=== PATIENT | female | born 1985 | race Caucasian/White ===

== ENCOUNTER 2019-12-18 07:33 | Emergency (ER) | payer OTHER, MEDICAID, SELFPAY ==
[2019-12-18 07:45] VITALS: BP 124/55; PULSE 70; RESP 22; TEMP 37.2; O2SAT 98; BMI 35.1
--- NOTE | 2019-12-18 07:46 | ED.DENTAL ---
HPI - Dental/Oral General Chief complaint: Dental/Oral Stated complaint: dental pain Time Seen by Provider: 12/18/19 07:46 Source: patient Mode of arrival: ambulatory Limitations: no limitations History of Present Illness MD Complaint: tooth pain Location: Tooth # (16) Teeth map: 1. 2. Onset (ago): day(s) (yesterday) Duration: constant Severity: severe Relieving factors: nothing Exacerbating factors: cold Treatment prior to arrival: none Related Data Previous Rx's Medication Instructions Recorded amoxicillin 500 mg PO BID 7 Days #14 cap 12/18/19 ibuprofen 600 mg PO Q6H PRN #30 tab 12/18/19 tramadol 50 mg PO Q8H PRN #14 tab 12/18/19 Allergies Allergy/AdvReac Type Severity Reaction Status Date / Time morphine [MORPHINE] Allergy Unknown HEADACHE, Verified 12/18/19 07:44 Migraine mushroom [MUSHROOM] Allergy Unknown UNKNOWN Verified 12/18/19 07:44 shellfish derived Allergy Unknown UNKNOWN Verified 12/18/19 07:44 [SHELLFISH DERIVED] Review of Systems Review of Systems: Constitutional : No Fever, No Chills ENT/Mouth : No swallowing difficulty, no change in voice, positive dental pain, positive jaw pain, no facial swelling Eyes: No Eye Pain, No Swelling Cardiovascular : No Chest Pain, No SOB Respiratory : No Cough, No Sputum Gastrointestinal : No Nausea, No Vomiting, No Diarrhea Genitourinary : No Dysuria Musculoskeletal : No Myalgias Skin : No rash Neuro : No Weakness, No Numbness, No Headache PMFSH Past Medical History Attestation statement: The following information was validated with the patient. Medical History (Updated 12/18/19 @ 07:55 by Sylwia Hurtado DO) Asthma Kidney stones Surgical History (Updated 12/18/19 @ 07:54 by Sylwia Hurtado DO) Hx of tubal ligation Social History Social History Alcohol intake: current Alcohol intake frequency: a few times a month Smoking Status: Never smoker Smoked in Last 30 Days: No Use of substances other than those prescribed or required for medical reasons: No Advance Directives: No Advance Directives Information Provided: No Physical Exam Vital Signs: Vital Signs: Last Vital Signs Temp 99.0 F 12/18/19 07:45 Pulse 70 12/18/19 07:45 Resp 22 H 12/18/19 07:45 BP 124/55 L 12/18/19 07:45 Pulse Ox 98 12/18/19 07:45 Body Mass Index 35.1 Appearance: Alert. Oriented X3. No acute distress. Eyes: Pupils equal, round and reactive to light. ENT: Pharynx normal. L upper wisdom tooth is impacted and unable to fully push through, no abscess, no drainage, no fluctuance Neck: Normal inspection. Neck supple. CVS: Normal heart rate and rhythm. Pulses normal. Respiratory: No respiratory distress. Breath sounds normal. Abdomen: Soft and nontender. Skin: Skin warm and dry. Normal skin color. Normal skin turgor. Extremities: No lower extremity edema. No calf ttp Neuro: Oriented X 3. No motor deficit. No sensory deficit. MDM - Dental/Oral MDM Narrative Medical decision making narrative: 34 yo female with asthma here with impacted dental wisdom tooth - L upper no signs of abscess, will need pain control and antibiotics, her issue will need oral surgery to remove teeth - she is aware and will call the dentist this week, no concern for deeper space infection Discharge Plan Discharge Clinical Impression: Impacted molar Patient Disposition: Home, Self-Care Instructions: Toothache (ED) Additional Instructions: return to ED for any worsening symptoms or concerns after every meal / food rinse mouth you need to see a dentist as soon as possible Prescriptions: New ibuprofen 600 mg tablet 600 mg PO Q6H PRN (Reason: pain) Qty: 30 RF: 0 amoxicillin 500 mg capsule 500 mg PO BID 7 Days Qty: 14 RF: 0 tramadol 50 mg tablet 50 mg PO Q8H PRN (Reason: pain) Qty: 14 RF: 0
[2019-12-18] MEDS: Ketorolac Tromethamine 60 MG/2 ML VIAL IM (08:02)
[2019-12-18] MEDS: Amoxicillin 500 MG CAPSULE PO (08:02)
[2019-12-18] MEDS: traMADoL HCL 50 MG TABLET PO (08:02)
== END 2019-12-18 08:14 | disposition home or self-care (01) ==
LOC: HO.ED 07:56
PROVIDERS: Emergency Provider Emergency Medicine; PCP Internal Medicine
DX: K01.1 Impacted teeth (principal); K08.89 Other specified disorders of teeth and supporting structures
CPT/HCPCS: 96372; 99284; J1885

== ENCOUNTER 2020-01-07 07:17 | Emergency (ER) | payer OTHER, MEDICAID, SELFPAY ==
[2020-01-07 07:23] VITALS: BP 136/87; PULSE 112; RESP 16; TEMP 37.7; O2SAT 98; BMI 35.1
--- NOTE | 2020-01-07 07:40 | ED_ITS ---
HPI - Fever General Chief Complaint: Fever Stated Complaint: fever Time Seen by Provider: 01/07/20 07:32 Source: patient Mode of arrival: ambulatory Limitations: no limitations History of Present Illness HPI Narrative: patient with no significant past medical history other family members are sick with fever cough not sure about a COVID. Patient been sick for last 4 days nausea vomiting weakness with low-grade fever patient vomited about 5 to 6 times a day with diarrhea. No abdominal pain complaining of diffuse back pain denies any urinary symptoms no cough no shortness of breath not sure about the COVID exposure MD elicited complaint: fever, malaise and weakness Onset (ago): day(s) (4) Context: sick contacts Exacerbating factors: nothing Relieving factors: nothing Associated symptoms: myalgias, nasal congestion, nausea, vomiting and diarrhea Treatments prior to arrival fever: none Related Data Previous Rx's Medication Instructions Recorded amoxicillin 500 mg PO BID 7 Days #14 cap 12/18/19 ibuprofen 600 mg PO Q6H PRN #30 tab 12/18/19 tramadol 50 mg PO Q8H PRN #14 tab 12/18/19 levofloxacin 500 mg PO DAILY 7 Days #7 tab 01/07/20 ondansetron 4 mg PO Q6-8H PRN #14 tab 01/07/20 tramadol 50 mg PO Q6H PRN #20 tab 01/07/20 Allergies Allergy/AdvReac Type Severity Reaction Status Date / Time morphine [MORPHINE] Allergy Unknown HEADACHE, Verified 12/18/19 07:44 Migraine mushroom [MUSHROOM] Allergy Unknown UNKNOWN Verified 12/18/19 07:44 shellfish derived Allergy Unknown UNKNOWN Verified 12/18/19 07:44 [SHELLFISH DERIVED] Review of Systems Review of Systems: Yes all other systems are reviewed and are negative Constitutional: Constitutional: Reports body ache(s), Reports chills, Reports fatigue, Reports fever(s) and Reports weakness Cardiovascular: Cardiovascular: Reports no additional cardiovascular complaints Respiratory: Respiratory: Denies chest congestion and Denies cough Gastrointestinal: Gastrointestinal: Denies abdominal pain, Reports diarrhea, Reports nausea and Reports vomiting Genitourinary: Genitourinary: Denies abnormal vaginal bleeding, Denies hematuria, Denies dysuria, Denies flank pain, Denies urinary hesitancy, Denies urinary urgency and Denies vaginal discharge Musculoskeletal: Musculoskeletal: Reports no additional musculoskeletal complaints Neurologic: Reports weakness Endocrine: Endocrine: Reports fatigue [facility] Past Medical History Medical History Asthma Kidney stones Surgical History Hx of tubal ligation Social History Social History Alcohol intake: current Alcohol intake frequency: holidays/special occasions only Smoking Status: Never smoker Use of substances other than those prescribed or required for medical reasons: No Advance Directives: No Advance Directives Information Provided: No Physical Exam Vital Signs: Vital Signs: Last Vital Signs Temp 98.7 F 01/07/20 13:06 Pulse 68 01/07/20 13:06 Resp 16 01/07/20 13:06 BP 121/67 01/07/20 13:06 Pulse Ox 98 01/07/20 13:06 Body Mass Index 35.1 Appearance: Alert. Oriented X3. No acute distress febrile nausea. Eyes: Pupils equal, round and reactive to light. ENT: Pharynx normal. Neck: Normal inspection. Neck supple. CVS: Normal heart rate and rhythm. Pulses normal. Respiratory: No respiratory distress. Breath sounds normal. Abdomen: Soft and nontender. bowel sounds normal no hepatosplenomegaly bilateral CVA tenderness Skin: Skin warm and dry. Normal skin color. Normal skin turgor. Extremities: No lower extremity edema. Good range of movement Neuro: Oriented X 3. No motor deficit. No sensory deficit. Course Course Course Narrative: patient feeling much better now taking p.o. fluids CT scan without any fluid collection or obstructive uropathy. Patient already received IV fluids and Rocephin will discharge her home on Levaquin MDM - Fever MDM Narrative Medical decision making narrative: patient with fever and diffuse back pain with nausea vomiting and diarrhea COVID test came back negative. urine showed WBCs suggestive of UTI. Will give her IV fluids check the CBC give IV Rocephin Lab Data Result diagrams: 01/07/20 09:03 01/07/20 09:03 Labs: Lab Results 01/07/20 01/07/20 01/07/20 Range/Units 07:38 08:03 09:03 WBC 13.8 H (4.8-10.8) X10*3/uL RBC 4.36 (4.20-5.50) X10*6/uL Hgb 12.7 (12.0-16.0) g/dl Hct 39.2 (37-47) % MCV 89.9 (80-98) fL MCH 29.1 (27.0-33.0) pg MCHC 32.4 (31.0-35.0) g/dl RDW 13.6 (11.0-16.0) % Plt Count 267 (160-400) X10*3/uL MPV 11.2 (9.4-12.3) fL Immature Gran % (Auto) 0.3 (0.0-0.4) % Neut % (Auto) 75.8 H (45-73) % Lymph % (Auto) 13.8 L (20-40) % [place] % (Auto) 9.8 (2-11) % Eos % (Auto) 0.1 (0-4) % Baso % (Auto) 0.2 (0-2) % Lymph # (Auto) 1.9 (1.2-4.9) X10*3/uL [place] # (Auto) 1.4 H (0.1-1.2) X10*3/uL Eos # (Auto) 0.0 (0.0-0.4) X10*3/uL Baso # (Auto) 0.0 (0.0-0.2) X10*3/uL Abs Immat Gran (auto) 0.04 H (0.00-0.03) X10*3/uL Absolute Neuts (auto) 10.5 H (2.0-8.3) X10*3/uL Absolute Nucleated RBC 0.000 (0.0-0.012) X10*3/uL Nucleated RBC % (auto) 0.0 (0.0-0.2) /100WBC Sodium (135-145) mmol/L Potassium (3.3-5.1) mmol/l Chloride (96-108) mmol/L Carbon Dioxide (22-29) mmol/L Anion Gap (12-20) BUN (9-16) mg/dL Creatinine (0.5-1.4) mg/dL Estim Creat Clear Calc Estimated GFR Random Glucose (60-115) mg/dL Calcium (8.4-10.2) mg/dL Total Bilirubin (0.0-1.0) mg/dL Direct Bilirubin (0.0-0.5) mg/dL AST (5-31) U/L ALT (0-31) U/L Alkaline Phosphatase (39-117) U/L Total Protein (6.5-8.0) g/dL Albumin (3.5-5.0) g/dL Lipase (8-78) U/L Urine Color YELLOW Urine Appearance CLOUDY Urine pH 6.5 (5.0-8.0) Ur Specific [place] 1.015 (1.005-1.025) Urine Protein 1+ H (NEG-TRACE) MG/DL Urine Glucose (UA) NEG (NEG) MG/DL Urine Ketones NEG (NEG) MG/DL Urine Blood 2+ H (NEG) Urine Nitrite NEG (NEG) Ur Leukocyte Esterase 1+ H (NEG) Urine RBC 5-9 H (0) /HPF Urine WBC 30-49 H (0-4) /HPF Ur Squamous Epith Cells TRACE /LPF Urine Bacteria 1+ /LPF Urine Test NEGATIVE (NEGATIVE) Coronavirus (PCR) NEGATIVE (Negative) Influenza Type A (PCR) NEGATIVE (Negative) Influenza Type B (PCR) NEGATIVE (Negative) RSV RNA Qual (PCR) NEGATIVE (Negative) 01/07/20 Range/Units 09:03 WBC (4.8-10.8) X10*3/uL RBC (4.20-5.50) X10*6/uL Hgb (12.0-16.0) g/dl Hct (37-47) % MCV (80-98) fL MCH (27.0-33.0) pg MCHC (31.0-35.0) g/dl RDW (11.0-16.0) % Plt Count (160-400) X10*3/uL MPV (9.4-12.3) fL Immature Gran % (Auto) (0.0-0.4) % Neut % (Auto) (45-73) % Lymph % (Auto) (20-40) % [place] % (Auto) (2-11) % Eos % (Auto) (0-4) % Baso % (Auto) (0-2) % Lymph # (Auto) (1.2-4.9) X10*3/uL [place] # (Auto) (0.1-1.2) X10*3/uL Eos # (Auto) (0.0-0.4) X10*3/uL Baso # (Auto) (0.0-0.2) X10*3/uL Abs Immat Gran (auto) (0.00-0.03) X10*3/uL Absolute Neuts (auto) (2.0-8.3) X10*3/uL Absolute Nucleated RBC (0.0-0.012) X10*3/uL Nucleated RBC % (auto) (0.0-0.2) /100WBC Sodium 137 (135-145) mmol/L Potassium 3.9 (3.3-5.1) mmol/l Chloride 101 (96-108) mmol/L Carbon Dioxide 26 (22-29) mmol/L Anion Gap 14 (12-20) BUN 8 L (9-16) mg/dL Creatinine 0.77 (0.5-1.4) mg/dL Estim Creat Clear Calc 101.4 Estimated GFR > 60 Random Glucose 135 H (60-115) mg/dL Calcium 8.6 (8.4-10.2) mg/dL Total Bilirubin 0.5 (0.0-1.0) mg/dL Direct Bilirubin 0.2 (0.0-0.5) mg/dL AST 15 (5-31) U/L ALT 18 (0-31) U/L Alkaline Phosphatase 103 (39-117) U/L Total Protein 7.2 (6.5-8.0) g/dL Albumin 4.2 (3.5-5.0) g/dL Lipase 20 (8-78) U/L Urine Color Urine Appearance Urine pH (5.0-8.0) Ur Specific [place] (1.005-1.025) Urine Protein (NEG-TRACE) MG/DL Urine Glucose (UA) (NEG) MG/DL Urine Ketones (NEG) MG/DL Urine Blood (NEG) Urine Nitrite (NEG) Ur Leukocyte Esterase (NEG) Urine RBC (0) /HPF Urine WBC (0-4) /HPF Ur Squamous Epith Cells /LPF Urine Bacteria /LPF Urine Test (NEGATIVE) Coronavirus (PCR) (Negative) Influenza Type A (PCR) (Negative) Influenza Type B (PCR) (Negative) RSV RNA Qual (PCR) (Negative) Discharge Plan Discharge Clinical Impression: Pyelonephritis Patient Disposition: Home, Self-Care Instructions: Urinary Tract Infection in Women (ED) Additional Instructions: drink plenty of fluids. Take antibiotic as prescribed. Pain medication as advised. Report to the ER if increased vomiting/ fever not getting better Prescriptions: New levofloxacin 500 mg tablet 500 mg PO DAILY 7 Days Qty: 7 RF: 0 ondansetron 4 mg tablet,disintegrating 4 mg PO Q6-8H PRN (Reason: nausea and vomiting) Qty: 14 RF: 0 tramadol 50 mg tablet 50 mg PO Q6H PRN (Reason: pain) Qty: 20 RF: 0 No Action ibuprofen 600 mg tablet 600 mg PO Q6H PRN (Reason: pain) Qty: 30 RF: 0 amoxicillin 500 mg capsule 500 mg PO BID 7 Days Qty: 14 RF: 0 tramadol 50 mg tablet 50 mg PO Q8H PRN (Reason: pain) Qty: 14 RF: 0 Interventions: ED Discharge Assessment Last Done: 01/07/20 13:18 Discharge Date/Time: 01/07/20 13:18
[2020-01-07] MEDS: Acetaminophen 325 MG TABLET 650 MG PO (07:43)
[2020-01-07 08:10] LABS: Glucose Urine UA NEG (NEG); Leukocyte Esterase Urine 1+ (NEG); Nitrite Urine NEG (NEG); PH 6.5 (5.0-8.0); Specific Gravity - Urine 1.015 (1.005-1.025); Urine Blood 2+ (NEG); Urine Ketones NEG (NEG); Urine Protein 1+ MG/DL (NEG-TRACE)
[2020-01-07 08:20] LABS: Appearance Urine CLOUDY; Color Urine YELLOW
[2020-01-07 08:31] LABS: Bacteria Urine 1+ /LPF; Squamous Epithelial Cell Urine TRACE /LPF; WBC Urine 30-49 /HPF (0-4)
[2020-01-07 08:32] LABS: Influenza A PCR NEGATIVE (Negative); Influenza B PCR NEGATIVE (Negative); Resp Syncy Virus RNA Qual PCR NEGATIVE (Negative); SARS COV2 PCR INHOUSE NEGATIVE (Negative)
[2020-01-07 09:05] LABS: UPreg QC Valid YES
[2020-01-07 09:06] LABS: Urine Pregnancy NEGATIVE (NEGATIVE)
[2020-01-07 09:09] VITALS: BP 112/63; PULSE 70; RESP 16; TEMP 37.2; O2SAT 98
[2020-01-07 09:09] LABS: MANUAL DIFF FLAG NO
[2020-01-07 09:16] LABS: Basophils Percent Auto 0.2 % (0-2); Eosinophils Percent Auto 0.1 % (0-4); Hematocrit 39.2 % (37-47); Hemoglobin 12.7 g/dl (12.0-16.0); Imm Gran Abs Auto 0.04 X10*3/uL (0.00-0.03); Imm Gran Pct Auto 0.3 % (0.0-0.4); Lymphocytes Absolute Auto 1.9 X10*3/uL (1.2-4.9); Lymphocytes Percent Auto 13.8 % (20-40); Mean Corpuscular HGB Conc 32.4 g/dl (31.0-35.0); Mean Corpuscular Hemoglobin 29.1 pg (27.0-33.0); Mean Corpuscular Volume 89.9 fL (80-98); Mean Platelet Volume 11.2 fL (9.4-12.3); Monocytes Absolute Auto 1.4 X10*3/uL (0.1-1.2); Monocytes Percent Auto 9.8 % (2-11); Neutrophils Absolute Auto 10.5 X10*3/uL (2.0-8.3); Neutrophils Percent Auto 75.8 % (45-73); Platelet Count 267 X10*3/uL (160-400); Red Blood Count 4.36 X10*6/uL (4.20-5.50); Red Cell Distribution Width 13.6 % (11.0-16.0); White Blood Count 13.8 X10*3/uL (4.8-10.8)
[2020-01-07] MEDS: Ketorolac Tromethamine 30 MG/ML VIAL IVPUSH (09:16)
[2020-01-07] MEDS: 0.9 % Sodium Chloride 1,000 ML 999 ML IVCONT (09:16)
[2020-01-07] MEDS: cefTRIAXone sodium 1 GM in 0.9 % Sodium Chloride 50 ML IV (09:17)
[2020-01-07 09:31] LABS: Anion Gap 14 (12-20); Blood Urea Nitrogen 8 mg/dL (9-16); Calcium 8.6 mg/dL (8.4-10.2); Carbon Dioxide 26 mmol/L (22-29); Chloride 101 mmol/L (96-108); Creatinine Clr Calc Pharmacy 101.4; Estimated Glomerular Filt Rate > 60; Glucose Random 135 mg/dL (60-115); Potassium 3.9 mmol/l (3.3-5.1); Sodium 137 mmol/L (135-145)
[2020-01-07 09:36] VITALS: BP 100/42; PULSE 67; RESP 16; O2SAT 96
--- NOTE | 2020-01-07 09:38 | CT_ITS ---
EXAMINATION: CT ABDOMEN AND PELVIS WITHOUT CONTRAST CLINICAL INFORMATION: Severe flank pain with urinary tract infection. Stone? COMPARISON: CT abdomen and pelvis from 07/29/2018. TECHNIQUE: Multidetector volumetric imaging was performed from the superior aspect of the liver through the pubic symphysis. Sagittal and coronal reformatted images were obtained on the technologist's workstation. This CT examination was performed using dose optimization techniques as appropriate, variously including the following: *Automated exposure control *Adjustment of mA and/or kV according to patient size (this includes techniques or standardized protocols for targeted exams where dose is matched to indication/reason for exam; i.e. extremities or head) *Use of iterative reconstruction technique DLP: 650 mGy-cm FINDINGS: LUNG BASES: Normal. No pulmonary consolidation or pleural effusion at either lung base. LIVER: The liver has normal size, shape, and attenuation. No focal liver lesion. GALLBLADDER AND BILIARY TREE: No radiopaque gallstones, wall thickening or pericholecystic fluid. No intrahepatic or extrahepatic bile duct dilatation. PANCREAS: Normal. No evidence of pancreatic ductal dilatation or mass. SPLEEN: Normal. ADRENAL GLANDS: Normal. KIDNEYS AND URETERS: Kidneys are normal in size. There are a few small calculi of less than 0.3 cm size involving lower pole of each kidney. Small bilateral renal stones were also observed on 07/29/2018. No large calculi. No evidence of ureterolithiasis or hydroureteronephrosis. Minimal left perinephric edema is noted. No focal perinephric fluid collection. Query whether patient has predominantly left-sided flank pain. BOWEL AND PERITONEUM: Stomach is unremarkable. No dilated loops of bowel. The appendix is normal. No overt bowel wall thickening or mesenteric fat stranding. No ascites or pneumoperitoneum. ABDOMINAL WALL: There appears to be chronic mild postoperative scarring, along with mild postoperative widening of rectus abdominis muscles, of the lower abdominal wall. VASCULATURE: Unremarkable. LYMPH NODES: No pathologic sized lymph nodes in the abdomen or pelvis. No inguinal lymphadenopathy. BLADDER AND PELVIC VISCERA: The urinary bladder has normal wall thickness. No bladder calculi. No perivesical edema. A few phleboliths are seen in the left lower pelvis. SKELETAL: Unremarkable. CT/CT abdomen pelvis wo con IMPRESSION: * Small bilateral renal calculi without hydroureteronephrosis. * Minimal left-sided perinephric edema is a finding that requires clinical correlation. Query whether there is predominantly left-sided flank pain. Although nonspecific, the edema could be a manifestation of a urinary tract infection (potential pyelonephritis, if in the correct clinical context). There is no focal perinephric collection/abscess identified on this noncontrast examination.
[2020-01-07 10:00] VITALS: RESP 16
[2020-01-07] MEDS: Morphine Sulfate 4 MG/ML CARTRIDGE IVPUSH (10:00)
[2020-01-07] MEDS: ondansetron HCL 4 MG/2 ML VIAL IVPUSH (10:00)
[2020-01-07 10:01] LABS: Alanine Aminotransferase 18 U/L (0-31); Albumin Level 4.2 g/dL (3.5-5.0); Alkaline Phosphatase 103 U/L (39-117); Aspartate Amino Transferase 15 U/L (5-31); Bilirubin Direct 0.2 mg/dL (0.0-0.5); Bilirubin Total 0.5 mg/dL (0.0-1.0); Lipase 20 U/L (8-78); Total Protein 7.2 g/dL (6.5-8.0)
[2020-01-07 10:08] VITALS: BP 104/42; PULSE 57; RESP 15; TEMP 37.1; O2SAT 97
[2020-01-07 13:06] VITALS: BP 121/67; PULSE 68; RESP 16; TEMP 37.1; O2SAT 98
== END 2020-01-07 13:18 | disposition home or self-care (01) ==
PROVIDERS: Emergency Provider Internal Medicine; PCP Internal Medicine
DX: N10 Acute pyelonephritis (principal); R50.9 Fever, unspecified; Z20.828 Contact with and (suspected) exposure to other viral communicable diseases; Z79.899 Other long term (current) drug therapy
CPT/HCPCS: 0241U; 36415; 74176; 80048; 80076; 81001; 81025; 83690; 85025; 87086; 87088; 87186; 96361; 96365; 96375; 96376; 99284; J0696; J1885; J2270; J2405

== ENCOUNTER → 2020-02-14 08:48 | Outpatient (BNVA) | payer OTHER, MEDICAID, SELFPAY | PROVIDERS: PCP Internal Medicine; Visit Provider Orthopaedic Surgery | DX: Z76.89 Persons encountering health services in other specified circumstances (principal) ==

== ENCOUNTER 2020-03-08 08:09 | Outpatient (REF) | payer OTHER, SELFPAY ==
--- NOTE | 2020-03-08 08:11 | EMG_ITS ---
Right median and ulnar motor and sensory studies were performed. Right radial sensory study was performed and paraspinal muscles were tested. IMPRESSION: [id number] right median neuropathy across carpal tunnel. MD BRISA Stanton/RUPINDER / [id number]
== END 2020-03-08 08:10 | disposition home or self-care (01) ==
LOC: HO.NEURO 08:09
PROVIDERS: PCP Internal Medicine; Visit Provider Orthopaedic Surgery
DX: R20.0 Anesthesia of skin (principal); R20.2 Paresthesia of skin
CPT/HCPCS: 95886; 95909

== ENCOUNTER → 2020-03-28 09:33 | Outpatient (BNVA) | payer OTHER, SELFPAY | PROVIDERS: PCP Internal Medicine; Visit Provider Orthopaedic Surgery ==

== ENCOUNTER 2020-04-19 11:55 | Day surgery (SDC) | payer OTHER, SELFPAY ==
--- NOTE | 2020-04-19 11:47 | W.PM.OPN ---
Operative Note Operative Note Date of Service: 04/19/20 Narrative: Preop diagnosis: 1. Right Carpal tunnel syndrome Postop diagnosis: 1. Right Carpal tunnel syndrome Procedure: 1. Right Carpal tunnel release Surgeon: Constance Palma MD Anesthesia: local block using 1% lidocaine with epinephrine Findings: Thickened transverse carpal ligament. EBL: Less than 5 mL Specimens: None Complications: None Disposition: Brought to recovery room in stable condition Plan: Follow-up for 7-10 days for wound check and suture removal Indications: The patient is 34 years old, with right carpal tunnel syndrome that has been unresponsive to nonoperative management. The risks and benefits of operative treatment including but not limited to risk of damage to blood vessels, nerves, tendons, infection, persistent pain, persistent symptoms, or possible need for additional surgery were discussed with the patient and the patient wishes to proceed with surgery. Procedure: Once consent was obtained a local block was performed using a combination of 1% lidocaine with epinephrine. The patient was then brought back to the operating suite and placed on the operative table in supine position. A tourniquet was applied to the proximal aspect of the right upper extremity and the limb was prepped and draped in a standard surgical fashion. Once assured that we had a good block, a 1.5 cm longitudinal incision was made centered over the right carpal tunnel. The incision was made through the skin to the subcutaneous tissues using a #15 blade. Dissection was made down to the level of the transverse carpal ligament with care being taken to protect the palmar cutaneous nerve. Once the transverse carpal ligament was clearly visualized, a longitudinal incision was made in the transverse carpal ligament 1st using a #15 blade, then using tenotomy scissors under direct visualization. Care was taken to look for and protect the motor branch of the median nerve when seen in this area. Once satisfied with our carpal tunnel release the wound was copiously irrigated with normal saline and hemostasis was obtained with a brief period of local pressure. The skin edges were reapproximated with some 5.0 nylon suture material and a sterile dressing was applied. The patient appears to have tolerated the procedure well and with no complications. All digits were well vascularized at the conclusion of the case.
[2020-04-19 11:50] VITALS: BP 148/78; PULSE 57; RESP 16; TEMP 36.6; O2SAT 98; BMI 34.0
[2020-04-19 13:36] VITALS: BP 134/91; PULSE 59; RESP 18; TEMP 37.6; O2SAT 100
--- NOTE | 2020-04-19 14:21 | MHC.SHP ---
Pre-Procedural Eval Section B Chief Complaint: carpal tunnel Allergies: Allergies Allergy/AdvReac Type Severity Reaction Status Date / Time mushroom [MUSHROOM] Allergy Unknown UNKNOWN Verified 04/19/20 11:58 shellfish derived Allergy Unknown UNKNOWN Verified 04/19/20 11:58 [SHELLFISH DERIVED] Plan I have reviewed the history and physical and performed a pertinent physical examination on my patient. No changes have occurred unless specified.
== END 2020-04-19 13:52 | disposition home or self-care (01) ==
PROVIDERS: PCP Internal Medicine; Visit Provider Orthopaedic Surgery
PROC: (CPT 64721; principal; 2020-04-19 12:30)
DX: G56.01 Carpal tunnel syndrome, right upper limb (principal); J45.909 Unspecified asthma, uncomplicated; Z79.51 Long term (current) use of inhaled steroids; Z79.899 Other long term (current) drug therapy; Z88.8 Allergy status to other drugs, medicaments and biological substances
CPT/HCPCS: 64721

== ENCOUNTER → 2020-04-30 10:02 | Outpatient (BNVA) | payer OTHER, SELFPAY | PROVIDERS: PCP Internal Medicine; Visit Provider Physician Assistant ==

== ENCOUNTER 2020-05-13 15:40 | Emergency (ER) | payer OTHER, SELFPAY ==
[2020-05-13 15:50] VITALS: BP 163/79; PULSE 61; RESP 16; TEMP 37.1; O2SAT 100; BMI 35.8
--- NOTE | 2020-05-13 17:07 | ED.DENTAL ---
HPI - Dental/Oral General Chief complaint: Dental/Oral Stated complaint: Dental Pain Time Seen by Provider: 05/13/20 17:06 History of Present Illness HPI Narrative: Patient complains of left-sided dental pain after wisdom tooth removal 3 days ago, pain is not controlled with Motrin and Tylenol and it has been hurting for 3 days, no fever chills Related Data Home Medications Medication Instructions Recorded Confirmed verapamil 120 mg tablet 120 mg PO DAILY 02/14/20 albuterol sulfate [ProAir HFA] 2 puff INHALATION QID PRN 04/19/20 04/19/20 cetirizine 1 tab PO DAILY PRN 04/19/20 04/19/20 fluticasone propionate [Flovent 2 puff PO BID 04/19/20 04/19/20 HFA] montelukast 1 tab PO BEDTIME 04/19/20 04/19/20 Previous Rx's Medication Instructions Recorded ibuprofen 600 mg PO Q6H PRN #30 tab 12/18/19 hydrocodone-acetaminophen 1 tab PO Q4-6H PRN #5 tab 04/19/20 ibuprofen 600 mg PO Q6H PRN #20 tab 05/13/20 oxycodone 5 mg PO Q6H PRN #14 tab 05/13/20 penicillin V potassium 500 mg PO QID 7 Days #28 tab 05/13/20 Allergies Allergy/AdvReac Type Severity Reaction Status Date / Time mushroom [MUSHROOM] Allergy Unknown UNKNOWN Verified 04/19/20 11:58 shellfish derived Allergy Unknown UNKNOWN Verified 04/19/20 11:58 [SHELLFISH DERIVED] Review of Systems Review of Systems: Positive for left-sided dental pain negatives are no fever no chills no dizziness no weakness no difficulty breathing or swallowing no shortness of breath no chest pain no neck pain no skin rash Yes all other systems are reviewed and are negative PMFSH Past Medical History Source: nursing notes reviewed Medical History (Updated 05/14/20 @ 00:00 by Elenita Lucio) Asthma Carpal tunnel syndrome of right wrist History of palpitations Kidney stones Surgical History (Updated 05/13/20 @ 15:52 by Nery Amado) History of lithotripsy Hx of tubal ligation [place] teeth extracted Family History Family History Mother No problems noted. Father No problems noted. 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 Physical Exam Vital Signs: Vital Signs: Last Vital Signs Temp 98.0 F 05/13/20 17:40 Pulse 63 05/13/20 17:40 Resp 16 05/13/20 17:40 BP 156/77 H 05/13/20 17:40 Pulse Ox 100 05/13/20 17:40 Body Mass Index 35.8 General appearance no acute distress A&O x3, and cooperative The facial exam the pharynx is normal and well hydrated The dental exam there is a site of tooth extraction which is not red or swollen, there is tenderness in the area, there is no facial swelling, the mandible has normal range of motion, no trismus, voice is normal The neck is supple The respiratory no acute distress Skin no rash Neuro no focal deficit Course Course Course Narrative: Patient is given pain medication and is already taking an antibiotic and is advised to follow with his dentist Discharge Plan Discharge Clinical Impression: Pain, dental Patient Disposition: Home, Self-Care Additional Instructions: Because pain is severe I added narcotic best plan is take extra-strength Tylenol available [id number] 2 tablets, a total of a 1000 mg 3 times a day Take the 600 mg ibuprofen up to 4 times a day If this is not helping then you can take the oxycodone 1 or 2 tablets every 4-6 hours As pain seems to be getting worse and there is some swelling I started an antibiotic in case of infection so take the penicillin Call your dentist Thursday so they can recheck and make sure this is normal healing Return to ER any time any worse condition or any concerns Prescriptions: New penicillin V potassium 500 mg tablet 500 mg PO QID 7 Days Qty: 28 RF: 0 oxycodone 5 mg tablet 5 mg PO Q6H PRN (Reason: pain) Qty: 14 RF: 0 ibuprofen 600 mg tablet 600 mg PO Q6H PRN (Reason: pain) Qty: 20 RF: 0 No Action cetirizine 10 mg tablet 1 tab PO DAILY PRN (Reason: allergies) RF: 0 Flovent HFA 44 mcg/actuation HFA aerosol inhaler 2 puff PO BID RF: 0 montelukast 10 mg tablet 1 tab PO BEDTIME RF: 0 albuterol sulfate [ProAir HFA] 90 mcg/actuation HFA aerosol inhaler 2 puff inhalation QID PRN (Reason: asthma) RF: 0 hydrocodone-acetaminophen 5-325 mg tablet 1 tab PO Q4-6H PRN (Reason: pain) Qty: 5 RF: 0 ibuprofen 600 mg tablet 600 mg PO Q6H PRN (Reason: pain) Qty: 30 RF: 0 Interventions: ED Discharge Assessment Last Done: 05/13/20 17:43 Discharge Date/Time: 05/13/20 17:46
[2020-05-13] MEDS: Acetaminophen 325 MG TABLET 975 MG PO (17:23)
[2020-05-13] MEDS: Ibuprofen 600 MG TABLET PO (17:24)
[2020-05-13] MEDS: Penicillin V Potassium 250 MG TABLET 500 MG PO (17:24)
[2020-05-13] MEDS: oxyCODONE HCl Immed Release 5 MG TABLET 10 MG PO (17:24)
[2020-05-13 17:40] VITALS: BP 156/77; PULSE 63; RESP 16; TEMP 36.7; O2SAT 100
== END 2020-05-13 17:46 | disposition home or self-care (01) ==
PROVIDERS: Emergency Provider Emergency Medicine; PCP Internal Medicine
DX: K08.89 Other specified disorders of teeth and supporting structures (principal); Z79.899 Other long term (current) drug therapy
CPT/HCPCS: 99283; 99284

== ENCOUNTER 2020-06-29 09:28 | Emergency (ER) | payer OTHER, MEDICAID, SELFPAY ==
--- NOTE | ~2020-06-29 | CT_ITS ---
EXAMINATION: CT ABDOMEN AND PELVIS WITHOUT CONTRAST CLINICAL INFORMATION: Bilateral flank and lower back pain. History of kidney stones. COMPARISON: CT abdomen and pelvis 12/30/2019 TECHNIQUE: Multidetector volumetric imaging was performed from the superior aspect of the liver through the pubic symphysis. Sagittal and coronal reformatted images were obtained on the technologist's workstation. This CT examination was performed using dose optimization techniques as appropriate, variously including the following: *Automated exposure control *Adjustment of mA and/or kV according to patient size (this includes techniques or standardized protocols for targeted exams where dose is matched to indication/reason for exam; i.e. extremities or head) *Use of iterative reconstruction technique DLP: 656 mGy-cm FINDINGS: LUNG BASES: There is right middle lobe platelike atelectasis. The lung bases are clear. The heart size is normal. LIVER, GALLBLADDER, AND BILIARY TREE: The liver is normal in size, shape, and attenuation. No focal hepatic lesion or biliary ductal dilatation is present. The gallbladder is unremarkable with no evidence of radiopaque gallstones, gallbladder wall thickening, or obvious pericholecystic inflammatory changes. PANCREAS: Unremarkable. SPLEEN: Unremarkable. ADRENAL GLANDS: Unremarkable. KIDNEYS AND URETERS: The kidneys are normal in size, lobulated shape, and normal attenuation. 2 mm radiopaque calculi in lower pole, 1 mm radiopaque calculi in midpole right kidney. There are punctate 1 mm radiopaque calculi in midpole left kidney. There is no caliectasis or hydronephrosis. BLADDER: Unremarkable. GASTROINTESTINAL TRACT: There is scattered stool and gas seen throughout the colon without any significant distention. The small bowel loops are normal caliber. Appendix is normal caliber. No signs of obstruction. The stomach is nondistended. ABDOMINAL WALL: There is a small umbilical hernia containing fat. LYMPH NODES: Normal. VASCULAR: Unremarkable. PELVIC VISCERA: The uterus is anteverted and appears unremarkable. Is no free air or free fluid. OSSEOUS STRUCTURES: No gross bony abnormality seen. There is a small umbilical hernia containing fat. CT/CT abdomen pelvis wo con IMPRESSION: Small bilateral nonobstructive renal calculi. No caliectasis or hydronephrosis seen. Mild constipation.
[2020-06-29 10:11] VITALS: BP 148/72; PULSE 67; RESP 16; TEMP 36.8; O2SAT 99; BMI 36.6
[2020-06-29 10:39] LABS: Glucose Urine UA NEG (NEG); Leukocyte Esterase Urine NEG (NEG); Nitrite Urine NEG (NEG); PH 7.5 (5.0-8.0); Specific Gravity - Urine 1.015 (1.005-1.025); Urine Blood NEG (NEG); Urine Ketones NEG (NEG); Urine Protein NEG (NEG-TRACE)
[2020-06-29 10:42] LABS: Appearance Urine CLEAR; Color Urine YELLOW; UPreg QC Valid YES; Urine Pregnancy NEGATIVE (NEGATIVE)
[2020-06-29 10:55] LABS: COVID-19 Test Negative (Negative)
[2020-06-29] MEDS: Cyclobenzaprine HCl 10 MG TABLET PO (12:06)
--- NOTE | 2020-06-29 12:35 | ED.GENADULT ---
HPI - General Adult General Chief complaint: General Medical Stated complaint: BODY ACHES Time Seen by Provider: 06/29/20 10:42 Source: patient Mode of arrival: ambulatory Limitations: no limitations History of Present Illness HPI narrative: 34-year-old female with a past medical history of kidney stones, palpitations, asthma and carpal tunnel syndrome presenting to the ED with complaints of 2 weeks of fatigue and body aches worsened the past few days. Reports associated nausea. Denies any fevers, dizziness, headaches, changes in vision, vomiting, sore throat, cough, ear pain, nasal congestion, chest pain, shortness of breath, dyspnea on exertion, orthopnea, palpitations, diarrhea constipation or any other symptoms complaints or concerns at this time. Denies recent travel or sick contacts. Related Data Home Medications Medication Instructions Recorded Confirmed verapamil 120 mg tablet 120 mg PO DAILY 02/14/20 albuterol sulfate [ProAir HFA] 2 puff INHALATION QID PRN 04/19/20 04/19/20 cetirizine 1 tab PO DAILY PRN 04/19/20 04/19/20 fluticasone propionate [Flovent 2 puff PO BID 04/19/20 04/19/20 HFA] montelukast 1 tab PO BEDTIME 04/19/20 04/19/20 Previous Rx's Medication Instructions Recorded ibuprofen 600 mg PO Q6H PRN #30 tab 12/18/19 hydrocodone-acetaminophen 1 tab PO Q4-6H PRN #5 tab 04/19/20 ibuprofen 600 mg PO Q6H PRN #20 tab 05/13/20 oxycodone 5 mg PO Q6H PRN #14 tab 05/13/20 penicillin V potassium 500 mg PO QID 7 Days #28 tab 05/13/20 acetaminophen [Tylenol Extra 1,000 mg PO QID PRN #14 tab 06/29/20 Strength] azithromycin See Rx Instructions .ROUTE 06/29/20 .COMPLEX #6 tab cyclobenzaprine 10 mg PO Q8H #10 tab 06/29/20 ibuprofen 800 mg PO Q8H PRN #14 tab 06/29/20 ondansetron HCl [Zofran] 4 mg PO Q8H PRN #14 tab 06/29/20 tramadol 50 mg PO BID PRN #14 tab 06/29/20 Allergies Allergy/AdvReac Type Severity Reaction Status Date / Time mushroom [MUSHROOM] Allergy Unknown UNKNOWN Verified 04/19/20 11:58 shellfish derived Allergy Unknown UNKNOWN Verified 04/19/20 11:58 [SHELLFISH DERIVED] Review of Systems Review of Systems: Constitutional : No Weight loss, No Fever, No Chills, No Night Sweats, positive Fatigue, positive Malaise ENT/Mouth : No Hearing loss, No Ear Pain, No Nasal Congestion, No Sinus Pain, No Hoarseness, No sore throat, No Rhinorrhea, No Swallowing Difficulty Eyes: No Eye Pain, No Swelling, No Redness, No Foreign Body, No Discharge, No Vision Changes Cardiovascular : No Chest Pain, No SOB, No Dyspnea on Exertion, No Orthopnea, No Edema, No Palpitations Respiratory : No Cough, No Sputum, No Wheezing, No Smoke Exposure, No Dyspnea Gastrointestinal : Positive Nausea, No Vomiting, No Diarrhea, No Constipation, positive abdominal Pain, No Hematochezia, No Melena Genitourinary : no irregular bleeding, No Dysuria, No Urinary Frequency, No Hematuria, No Urinary Incontinence, No Urgency, No Flank Pain, No Urinary Flow Changes, No Hesitancy Musculoskeletal : Positive back pain, positive joint pain, positive Myalgias, No Joint Swelling Skin : No Skin Lesions, No rash Neuro : No Weakness, No Numbness, No Paresthesias, No Loss of Consciousness, No Dizziness, No Headache Psych : No Anxiety/Panic, No Depression, No SI/HI/AH/VH, No Social Issues, Heme/Lymph: No Bruising, No Bleeding,No Lymphadenopathy Endocrine : No Polyuria, No Polydipsia, No Temperature Intolerance Yes all other systems are reviewed and are negative [facility] Past Medical History Attestation statement: The following information was validated with the patient. Medical History Asthma Carpal tunnel syndrome of right wrist History of palpitations Kidney stones Surgical History History of lithotripsy Hx of tubal ligation [place] teeth extracted Family History Family History Mother No problems noted. Father No problems noted. 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 Blood pressure 148/72. Heart rate normal. Respiration rate normal. Temperature normal. Oxygen saturation normal. Appearance: Alert. Oriented X3. No acute distress. Head: Normal external exam. Normocephalic. Atraumatic. Eyes: PERRLA. EOMI. Conjunctiva and sclera normal. Eyelids normal. ENT: EAC normal. TM's Normal. Pharynx normal. Uvula midline. Moist mucous membranes.. Neck: Normal inspection. Neck supple. FROM. No adenopathy. Thyroid Normal. No meningeal signs. No neck mass noted. CVS: Normal heart rate and rhythm. Heart sound normal. Pulses normal throughout. No murmurs/rales/gallops. Respiratory: No respiratory distress. Painless inspiration. Breath sounds normal. No wheezes/rales/rhonchi noted. Chest nontender. No accessory muscle usage noted or decreased air movement noted. Abdomen: Soft and mild tender to palpation to right flank/right lower quadrant. Bowel sounds normal in all 4 quadrants. No distention noted. No organomegaly noted. No visible injury noted. Back: + b/l CVA tenderness. Full range of motion noted. No rashes/lesion/induration/fluctuance or signs of infection noted. Skin: Skin warm and dry. Normal skin color. Normal skin turgor. No rashes/lesions/lacerations noted. Extremities: No lower extremity edema. Extremities exhibit normal range of motion. Extremities nontender. Neuro: Oriented X 3. No motor deficit. No sensory deficit. Reflexes normal. Normal steady gait. No focal neuro deficits noted. Course Course Course Narrative: 34-year-old female with a past medical history of kidney stones, palpitations, asthma and carpal tunnel syndrome presenting to the ED with complaints of 2 weeks of fatigue and body aches worsened the past few days. - patient reported she did not need labs although was concerned about having a CT scan of her abdomen pelvis to evaluate for possible kidney stones therefore no labs were obtained but were offered. UA within normal limits no evidence of UTI. UHCG noted for . COVID swab negative. CT scan Of abdomen and pelvis revealed small bilateral nonobstructing renal calculi no hydronephrosis noted. Mild constipation. - therefore will DC home with symptomatic treatment instructions to return with new or worsening symptoms to follow up with primary care provider. Patient understands agrees the plan. Medical Decision Making Medical Records Medical records reviewed: Yes I reviewed the patient's medical records. Lab Data Labs: Lab Results 06/29/20 06/29/20 06/29/20 Range/Units 10:20 10:20 10:20 Urine Color YELLOW Urine Appearance CLEAR Urine pH 7.5 (5.0-8.0) Ur Specific [place] 1.015 (1.005-1.025) Urine Protein NEG (NEG-TRACE) MG/DL Urine Glucose (UA) NEG (NEG) MG/DL Urine Ketones NEG (NEG) MG/DL Urine Blood NEG (NEG) Urine Nitrite NEG (NEG) Ur Leukocyte Esterase NEG (NEG) Urine Test NEGATIVE (NEGATIVE) COVID-19 ([facility]) Negative (Negative) COVID-19 Clin Com See Note Imaging Data CT scan abdomen pelvis without IV contrast: Attestation: I personally reviewed and interpreted this imaging study as follows: Radiologist's impression: FINDINGS: LUNG BASES: There is right middle lobe platelike atelectasis. The lung bases are clear. The heart size is normal. LIVER, GALLBLADDER, AND BILIARY TREE: The liver is normal in size, shape, and attenuation. No focal hepatic lesion or biliary ductal dilatation is present. The gallbladder is unremarkable with no evidence of radiopaque gallstones, gallbladder wall thickening, or obvious pericholecystic inflammatory changes. PANCREAS: Unremarkable. SPLEEN: Unremarkable. ADRENAL GLANDS: Unremarkable. KIDNEYS AND URETERS: The kidneys are normal in size, lobulated shape, and normal attenuation. 2 mm radiopaque calculi in lower pole, 1 mm radiopaque calculi in midpole right kidney. There are punctate 1 mm radiopaque calculi in midpole left kidney. There is no caliectasis or hydronephrosis. BLADDER: Unremarkable. GASTROINTESTINAL TRACT: There is scattered stool and gas seen throughout the colon without any significant distention. The small bowel loops are normal caliber. Appendix is normal caliber. No signs of obstruction. The stomach is nondistended. ABDOMINAL WALL: There is a small umbilical hernia containing fat. LYMPH NODES: Normal. VASCULAR: Unremarkable. PELVIC VISCERA: The uterus is anteverted and appears unremarkable. Is no free air or free fluid. OSSEOUS STRUCTURES: No gross bony abnormality seen. There is a small umbilical hernia containing fat. CT/CT abdomen pelvis wo con IMPRESSION: Small bilateral nonobstructive renal calculi. No caliectasis or hydronephrosis seen. Mild constipation. Discharge Plan Discharge Clinical Impression: Acute viral syndrome Patient Disposition: Home, Self-Care Instructions: Viral Syndrome (ED) Prescriptions: New cyclobenzaprine 10 mg tablet 10 mg PO Q8H Qty: 10 RF: 0 azithromycin 250 mg tablet See Rx Instructions .ROUTE .COMPLEX Qty: 6 RF: 0 ibuprofen 800 mg tablet 800 mg PO Q8H PRN (Reason: pain) Qty: 14 RF: 0 ondansetron HCl [Zofran] 4 mg tablet 4 mg PO Q8H PRN (Reason: nausea and vomiting) Qty: 14 RF: 0 tramadol 50 mg tablet 50 mg PO BID PRN (Reason: pain) Qty: 14 RF: 0 acetaminophen [Tylenol Extra Strength] 500 mg tablet 1,000 mg PO QID PRN (Reason: fever or pain) Qty: 14 RF: 0 No Action cetirizine 10 mg tablet 1 tab PO DAILY PRN (Reason: allergies) RF: 0 Flovent HFA 44 mcg/actuation HFA aerosol inhaler 2 puff PO BID RF: 0 montelukast 10 mg tablet 1 tab PO BEDTIME RF: 0 albuterol sulfate [ProAir HFA] 90 mcg/actuation HFA aerosol inhaler 2 puff inhalation QID PRN (Reason: asthma) RF: 0 hydrocodone-acetaminophen 5-325 mg tablet 1 tab PO Q4-6H PRN (Reason: pain) Qty: 5 RF: 0 ibuprofen 600 mg tablet 600 mg PO Q6H PRN (Reason: pain) Qty: 30 RF: 0 penicillin V potassium 500 mg tablet 500 mg PO QID 7 Days Qty: 28 RF: 0 oxycodone 5 mg tablet 5 mg PO Q6H PRN (Reason: pain) Qty: 14 RF: 0 ibuprofen 600 mg tablet 600 mg PO Q6H PRN (Reason: pain) Qty: 20 RF: 0 Referrals: Jayde Link MD [Primary Care Provider] - 2 days Stand Alone Forms: Work/School Release Print Language: Citizen Of [place]
[2020-06-29 13:26] VITALS: BP 120/74; PULSE 76; RESP 16; TEMP 36.7; O2SAT 98
== END 2020-06-29 13:29 | disposition home or self-care (01) ==
PROVIDERS: Emergency Provider Internal Medicine; PCP Internal Medicine
DX: B34.9 Viral infection, unspecified (principal); R10.9 Unspecified abdominal pain; M54.5 Low back pain; M79.10 Myalgia, unspecified site; Z79.899 Other long term (current) drug therapy; Z20.822 Contact with and (suspected) exposure to COVID-19
CPT/HCPCS: 36415; 74176; 81003; 81025; 87635; 99284

== ENCOUNTER 2020-08-06 07:58 | Emergency (ER) | payer OTHER, MEDICAID, SELFPAY ==
--- NOTE | ~2020-08-06 | XR_ITS ---
EXAMINATION: XR CHEST CLINICAL INFORMATION: Chest pain COMPARISON: None TECHNIQUE: 2 views of the chest were obtained. FINDINGS: No significant abnormality is noted involving the heart, lungs, mediastinum, bony thorax or soft tissues. XR/XR chest 2V IMPRESSION: Unremarkable chest examination.
[2020-08-06 08:06] VITALS: BP 161/79; PULSE 68; RESP 12; TEMP 36.8; O2SAT 99; BMI 35.9
--- NOTE | 2020-08-06 09:01 | ECG_ITS ---
Test Reason : 51594 Blood Pressure : / mmHG Vent. Rate : 064 BPM Atrial Rate : 064 BPM P-R Int : 142 ms QRS Dur : 080 ms QT Int : 386 ms P-R-T Axes : -12 011 035 degrees QTc Int : 398 ms Normal sinus rhythm with sinus arrhythmia Normal ECG No previous ECGs available Referred By: Danielle Bundy Electronically Signed By:CÉSAR CABRERA MD
--- NOTE | 2020-08-06 09:26 | ED.CHESTPAIN ---
HPI - Chest Pain General Chief Complaint: Chest Pain Stated Complaint: chest pain Time Seen by Provider: 08/06/20 09:00 Source: patient Mode of arrival: ambulatory Limitations: no limitations History of Present Illness HPI narrative: 34-year-old female with a past medical history of asthma, palpitations on verapamil, GERD here with complaints of left-sided chest pain/ shoulder pain x2 days. Patient's tells me is worsened if she takes a deep breath. No cough, fever, nausea, vomiting, diaphoresis, dizziness. She does feel like the pain takes her breath away. It is constant. Motrin does help at times. no recent travel or sick contact. No leg swelling or pain. Related Data Home Medications Medication Instructions Recorded Confirmed verapamil 120 mg tablet 120 mg PO DAILY 02/14/20 albuterol sulfate [ProAir HFA] 2 puff INHALATION QID PRN 04/19/20 04/19/20 cetirizine 1 tab PO DAILY PRN 04/19/20 04/19/20 fluticasone propionate [Flovent 2 puff PO BID 04/19/20 04/19/20 HFA] montelukast 1 tab PO BEDTIME 04/19/20 04/19/20 Previous Rx's Medication Instructions Recorded ibuprofen 600 mg PO Q6H PRN #30 tab 12/18/19 hydrocodone-acetaminophen 1 tab PO Q4-6H PRN #5 tab 04/19/20 ibuprofen 600 mg PO Q6H PRN #20 tab 05/13/20 oxycodone 5 mg PO Q6H PRN #14 tab 05/13/20 penicillin V potassium 500 mg PO QID 7 Days #28 tab 05/13/20 acetaminophen [Tylenol Extra 1,000 mg PO QID PRN #14 tab 06/29/20 Strength] azithromycin See Rx Instructions .ROUTE 06/29/20 .COMPLEX #6 tab cyclobenzaprine 10 mg PO Q8H #10 tab 06/29/20 ibuprofen 800 mg PO Q8H PRN #14 tab 06/29/20 ondansetron HCl [Zofran] 4 mg PO Q8H PRN #14 tab 06/29/20 tramadol 50 mg PO BID PRN #14 tab 06/29/20 cyclobenzaprine 10 mg PO TID PRN #10 tab 08/06/20 naproxen 500 mg PO BID PRN #20 tab 08/06/20 Allergies Allergy/AdvReac Type Severity Reaction Status Date / Time mushroom [MUSHROOM] Allergy Unknown UNKNOWN Verified 04/19/20 11:58 shellfish derived Allergy Unknown UNKNOWN Verified 04/19/20 11:58 [SHELLFISH DERIVED] Review of Systems Review of Systems: Yes all other systems are reviewed and are negative Constitutional: Constitutional: Reports no additional constitutional complaints, Denies body ache(s), Denies chills, Denies fever(s), Denies headache(s) and Denies weakness Eyes: Eyes: Reports no additional eye complaints and Denies change in vision ENT: Reports system reviewed and no additional complaints, except as documented, Denies dizziness, Denies headache(s), Denies nasal congestion, Denies nasal discharge and Denies neck pain Cardiovascular: Cardiovascular: Reports no additional cardiovascular complaints, Reports chest pain, Denies leg edema and Denies dyspnea Respiratory: Respiratory: Reports no additional respiratory complaints, Denies cough and Denies dyspnea Gastrointestinal: Gastrointestinal: Reports no additional gastrointestinal complaints, Denies abdominal pain, Denies diarrhea, Denies nausea and Denies vomiting Genitourinary: Genitourinary: Reports no additional female genitourinary complaints and Denies urinary incontinence Musculoskeletal: Musculoskeletal: Reports no additional musculoskeletal complaints, Denies back pain, Denies arthralgias, Denies joint swelling, Denies neck pain, Denies numbness and Denies tingling Integumentary/Breasts: Skin/Breast: Reports system reviewed and no additional complaints, except as docu and Denies rash Neurologic: Reports system reviewed and no additional complaints, except as documented, Denies Abnormal speech present, Denies dizziness, Denies headache(s), Denies numbness, Denies tingling and Denies weakness [facility] Past Medical History Attestation statement: The following information was validated with the patient. Source: old records reviewed and nursing notes reviewed Medical History Asthma Carpal tunnel syndrome of right wrist History of palpitations Kidney stones Surgical History History of lithotripsy Hx of tubal ligation [place] teeth extracted Family History Family History Mother No problems noted. Father No problems noted. 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 Physical Exam Vital Signs: Vital Signs: Last Vital Signs Temp 99.0 F 08/06/20 10:45 Pulse 57 08/06/20 11:03 Resp 18 08/06/20 11:03 BP 126/70 08/06/20 11:03 Pulse Ox 98 08/06/20 10:45 Body Mass Index 35.9 Const: General: cooperative, healthy appearing, comfortable and no acute distress Orientation/consciousness: patient oriented x3 Limitations: no limitations HENMT: Head: Yes normal to inspection Ears: hearing grossly normal bilaterally General nose exam: Normal external nose present Face and sinus: Yes normal facial exam Mouth: Normal oral and palatal mucosa present Throat: Yes posterior oropharynx normal Eyes: General: appearance normal, both eyes and all related structures Pupils: Equal, round and reactive pupils present Neck: Neck: Yes normal visual inspection Chest: Other: Left upper chest and trapezius tender to palpate with no ecchymosis or crepitus noted. Worsened with left arm movement, deep breathing Chest palpation & inspection: normal inspection of the chest Resp: Effort & Inspection: normal respiratory effort Auscultation: clear to auscultation bilaterally Cardio: Rate: regular rate Rhythm: regular rhythm Peripheral pulses: Peripheral pulses 2+ throughout GI: Inspection: Yes normal to inspection Palpation (GI): Soft to palpation and nontender Auscultation: normal bowel sounds Back/Spine/Pelvis: Thoracic/Lumbar Spine: thoracic and lumbar spine normal to inspection Skin: General skin exam: no rashes or lesions noted Neuro: General: patient oriented x3, no focal motor deficits and normal sensation to monofilament Cranial nerves: Yes Equal, round and reactive pupils present Cognition (Neuro): normal cognition Speech: No Abnormal speech present Gait exam (Neuro): Normal gait present Motor exam (neuro): 5/5 motor strength present throughout Extrem: General: Yes normal to inspection, Yes no pedal edema and Yes no calf tenderness Course Course Course Narrative: 34-year-old female here with complaints of left-sided upper chest and shoulder pain x2 days which is musculoskeletal and pleuritic and nature. Hemodynamically stable. Well appearing. Will check chest x-ray, EKG, labs, provide analgesia. - labs, EKG, chest x-ray all unremarkable. Pain is more musculoskeletal on exam is improved with Toradol and Flexeril here in the emergency department. Reviewed worrisome signs and symptoms of when to return to the emergency department. Comfortable discharge home. MDM - Chest Pain Differential Diagnosis Differential diagnosis: Likely pneumothorax, atypical chest pain and costochondritis Differential diagnosis: pe, acs Less likely ACS with EKG which shows no ischemic changes and troponin to which is negative with symptoms greater than several days less likely PE with negative D-dimer no clinical signs or symptoms concerning for PE or DVT Medical Records Data Attestation: I reviewed the patient's medical records. Lab Data Attestation: I reviewed the patient's lab results. Result diagrams: 08/06/20 10:50 08/06/20 10:50 Labs: Lab Results 08/06/20 08/06/20 08/06/20 Range/Units 10:50 10:50 10:50 WBC 9.6 (4.8-10.8) X10*3/uL RBC 4.38 (4.20-5.50) X10*6/uL Hgb 13.2 (12.0-16.0) g/dl Hct 39.7 (37-47) % MCV 90.6 (80-98) fL MCH 30.1 (27.0-33.0) pg MCHC 33.2 (31.0-35.0) g/dl RDW 13.3 (11.0-16.0) % Plt Count 263 (160-400) X10*3/uL MPV 11.0 (9.4-12.3) fL Immature Gran % (Auto) 0.3 (0.0-0.4) % Neut % (Auto) 60.1 (45-73) % Lymph % (Auto) 30.6 (20-40) % [place] % (Auto) 5.0 (2-11) % Eos % (Auto) 3.7 (0-4) % Baso % (Auto) 0.3 (0-2) % Lymph # (Auto) 2.9 (1.2-4.9) X10*3/uL [place] # (Auto) 0.5 (0.1-1.2) X10*3/uL Eos # (Auto) 0.4 (0.0-0.4) X10*3/uL Baso # (Auto) 0.0 (0.0-0.2) X10*3/uL Abs Immat Gran (auto) 0.03 (0.00-0.03) X10*3/uL Absolute Neuts (auto) 5.8 (2.0-8.3) X10*3/uL Absolute Nucleated RBC 0.000 (0.0-0.012) X10*3/uL Nucleated RBC % (auto) 0.0 (0.0-0.2) /100WBC D-Dimer NG/ML Sodium 137 (135-145) mmol/L Potassium 3.7 (3.3-5.1) mmol/L Chloride 106 (96-108) mmol/L Carbon Dioxide 26 (22-29) mmol/L Anion Gap 9 L (12-20) BUN 9 (9-16) mg/dL Creatinine 0.63 (0.5-1.4) mg/dL Estim Creat Clear Calc 125.4 Estimated GFR > 60 Random Glucose 95 (60-115) mg/dL Calcium 8.6 (8.4-10.2) mg/dL Magnesium 2.0 (1.6-2.6) mg/dL Total Bilirubin 0.5 (0.0-1.0) mg/dL Direct Bilirubin < 0.2 (0.0-0.5) mg/dL AST 21 (5-31) U/L ALT 24 (0-31) U/L Alkaline Phosphatase 95 (39-117) U/L Troponin I High Sens < 3.5 (<3.5-17.0) ng/L Total Protein 6.5 (6.5-8.0) g/dL Albumin 3.8 (3.5-5.0) g/dL 08/06/20 Range/Units 10:50 WBC (4.8-10.8) X10*3/uL RBC (4.20-5.50) X10*6/uL Hgb (12.0-16.0) g/dl Hct (37-47) % MCV (80-98) fL MCH (27.0-33.0) pg MCHC (31.0-35.0) g/dl RDW (11.0-16.0) % Plt Count (160-400) X10*3/uL MPV (9.4-12.3) fL Immature Gran % (Auto) (0.0-0.4) % Neut % (Auto) (45-73) % Lymph % (Auto) (20-40) % [place] % (Auto) (2-11) % Eos % (Auto) (0-4) % Baso % (Auto) (0-2) % Lymph # (Auto) (1.2-4.9) X10*3/uL [place] # (Auto) (0.1-1.2) X10*3/uL Eos # (Auto) (0.0-0.4) X10*3/uL Baso # (Auto) (0.0-0.2) X10*3/uL Abs Immat Gran (auto) (0.00-0.03) X10*3/uL Absolute Neuts (auto) (2.0-8.3) X10*3/uL Absolute Nucleated RBC (0.0-0.012) X10*3/uL Nucleated RBC % (auto) (0.0-0.2) /100WBC D-Dimer < 200 NG/ML Sodium (135-145) mmol/L Potassium (3.3-5.1) mmol/L Chloride (96-108) mmol/L Carbon Dioxide (22-29) mmol/L Anion Gap (12-20) BUN (9-16) mg/dL Creatinine (0.5-1.4) mg/dL Estim Creat Clear Calc Estimated GFR Random Glucose (60-115) mg/dL Calcium (8.4-10.2) mg/dL Magnesium (1.6-2.6) mg/dL Total Bilirubin (0.0-1.0) mg/dL Direct Bilirubin (0.0-0.5) mg/dL AST (5-31) U/L ALT (0-31) U/L Alkaline Phosphatase (39-117) U/L Troponin I High Sens (<3.5-17.0) ng/L Total Protein (6.5-8.0) g/dL Albumin (3.5-5.0) g/dL Imaging Data Chest x-ray: Attestation: I personally reviewed and interpreted this imaging study as follows: Radiologist's impression: EXAMINATION: XR CHEST CLINICAL INFORMATION: Chest pain COMPARISON: None TECHNIQUE: 2 views of the chest were obtained. FINDINGS: No significant abnormality is noted involving the heart, lungs, mediastinum, bony thorax or soft tissues. XR/XR chest 2V IMPRESSION: Unremarkable chest examination. ECG Data ECG #1: Attestation: I personally reviewed and interpreted this ECG as follows: ECG interpretation date: 08/06/20 ECG interpretation time: 08:36 Interpretation: sinus rhythm with sinus arrhythmia with a rate of 64, normal VA, normal QRS, normal QT Discharge Plan Discharge Clinical Impression: Atypical chest pain Patient Disposition: Home, Self-Care Instructions: Chest Wall Pain (ED) Additional Instructions: Heat or ice Gentle stretching No heavy lifting or bending. Prescriptions: New cyclobenzaprine 10 mg tablet 10 mg PO TID PRN (Reason: muscle spasm) Qty: 10 RF: 0 naproxen 500 mg tablet 500 mg PO BID PRN (Reason: pain) Qty: 20 RF: 0 No Action cetirizine 10 mg tablet 1 tab PO DAILY PRN (Reason: allergies) RF: 0 Flovent HFA 44 mcg/actuation HFA aerosol inhaler 2 puff PO BID RF: 0 montelukast 10 mg tablet 1 tab PO BEDTIME RF: 0 albuterol sulfate [ProAir HFA] 90 mcg/actuation HFA aerosol inhaler 2 puff inhalation QID PRN (Reason: asthma) RF: 0 hydrocodone-acetaminophen 5-325 mg tablet 1 tab PO Q4-6H PRN (Reason: pain) Qty: 5 RF: 0 ibuprofen 600 mg tablet 600 mg PO Q6H PRN (Reason: pain) Qty: 30 RF: 0 penicillin V potassium 500 mg tablet 500 mg PO QID 7 Days Qty: 28 RF: 0 oxycodone 5 mg tablet 5 mg PO Q6H PRN (Reason: pain) Qty: 14 RF: 0 ibuprofen 600 mg tablet 600 mg PO Q6H PRN (Reason: pain) Qty: 20 RF: 0 cyclobenzaprine 10 mg tablet 10 mg PO Q8H Qty: 10 RF: 0 azithromycin 250 mg tablet See Rx Instructions .ROUTE .COMPLEX Qty: 6 RF: 0 ibuprofen 800 mg tablet 800 mg PO Q8H PRN (Reason: pain) Qty: 14 RF: 0 ondansetron HCl [Zofran] 4 mg tablet 4 mg PO Q8H PRN (Reason: nausea and vomiting) Qty: 14 RF: 0 tramadol 50 mg tablet 50 mg PO BID PRN (Reason: pain) Qty: 14 RF: 0 acetaminophen [Tylenol Extra Strength] 500 mg tablet 1,000 mg PO QID PRN (Reason: fever or pain) Qty: 14 RF: 0 Referrals: Jayde Link MD [Primary Care Provider] - 2 days Stand Alone Forms: Work/School Release Interventions: ED Discharge Assessment Last Done: 08/06/20 12:32 Discharge Date/Time: 08/06/20 12:33
[2020-08-06] MEDS: Cyclobenzaprine HCl 10 MG TABLET PO (10:28)
[2020-08-06 10:45] VITALS: BP 124/86; PULSE 88; RESP 16; TEMP 37.2; O2SAT 98
[2020-08-06 10:57] LABS: MANUAL DIFF FLAG NO
[2020-08-06] MEDS: Ketorolac Tromethamine 30 MG/ML VIAL IVPUSH (11:02)
[2020-08-06 11:03] VITALS: BP 126/70; PULSE 57; RESP 18
[2020-08-06 11:08] LABS: Basophils Percent Auto 0.3 % (0-2); Eosinophils Absolute Auto 0.4 X10*3/uL (0.0-0.4); Eosinophils Percent Auto 3.7 % (0-4); Hematocrit 39.7 % (37-47); Hemoglobin 13.2 g/dl (12.0-16.0); Imm Gran Abs Auto 0.03 X10*3/uL (0.00-0.03); Imm Gran Pct Auto 0.3 % (0.0-0.4); Lymphocytes Absolute Auto 2.9 X10*3/uL (1.2-4.9); Lymphocytes Percent Auto 30.6 % (20-40); Mean Corpuscular HGB Conc 33.2 g/dl (31.0-35.0); Mean Corpuscular Hemoglobin 30.1 pg (27.0-33.0); Mean Corpuscular Volume 90.6 fL (80-98); Monocytes Absolute Auto 0.5 X10*3/uL (0.1-1.2); Neutrophils Absolute Auto 5.8 X10*3/uL (2.0-8.3); Neutrophils Percent Auto 60.1 % (45-73); Platelet Count 263 X10*3/uL (160-400); Red Blood Count 4.38 X10*6/uL (4.20-5.50); Red Cell Distribution Width 13.3 % (11.0-16.0); White Blood Count 9.6 X10*3/uL (4.8-10.8)
[2020-08-06 11:24] LABS: D Dimer < 200 NG/ML
[2020-08-06 11:44] LABS: Troponin-I High Sensitivity < 3.5 ng/L (<3.5-17.0)
[2020-08-06 11:49] LABS: Alanine Aminotransferase 24 U/L (0-31); Albumin Level 3.8 g/dL (3.5-5.0); Alkaline Phosphatase 95 U/L (39-117); Anion Gap 9 (12-20); Aspartate Amino Transferase 21 U/L (5-31); Bilirubin Direct < 0.2 mg/dL (0.0-0.5); Bilirubin Total 0.5 mg/dL (0.0-1.0); Blood Urea Nitrogen 9 mg/dL (9-16); Calcium 8.6 mg/dL (8.4-10.2); Carbon Dioxide 26 mmol/L (22-29); Chloride 106 mmol/L (96-108); Creatinine Clr Calc Pharmacy 125.4; Estimated Glomerular Filt Rate > 60; Glucose Random 95 mg/dL (60-115); Potassium 3.7 mmol/L (3.3-5.1); Sodium 137 mmol/L (135-145); Total Protein 6.5 g/dL (6.5-8.0)
== END 2020-08-06 12:33 | disposition home or self-care (01) ==
PROVIDERS: Nurse Practitioner Family; Emergency Provider Emergency Medicine Emergency Medical Services; PCP Internal Medicine
DX: R07.89 Other chest pain (principal); R00.2 Palpitations; J45.909 Unspecified asthma, uncomplicated; Z79.899 Other long term (current) drug therapy
CPT/HCPCS: 36415; 71046; 80048; 80076; 83735; 84484; 85025; 85379; 93005; 96374; 99284; J1885

== ENCOUNTER 2020-10-13 07:33 | Emergency (ER) | payer OTHER, MEDICAID, SELFPAY ==
--- NOTE | ~2020-10-13 | CT_ITS ---
EXAMINATION: CT ABDOMEN AND PELVIS WITH CONTRAST CLINICAL INFORMATION: Abdominal pain COMPARISON: 06/29/2020 CT abdomen TECHNIQUE: Multidetector volumetric images were obtained from the superior aspect of the liver through the pubic symphysis following administration 85 mL of Omnipaque 350 intravenous contrast. Sagittal and coronal reformatted images were obtained on the technologist's workstation. Oral contrast: No This CT examination was performed using dose optimization techniques as appropriate, variously including the following: *Automated exposure control *Adjustment of mA and/or kV according to patient size (this includes techniques or standardized protocols for targeted exams where dose is matched to indication/reason for exam; i.e. extremities or head) *Use of iterative reconstruction technique DLP: 623 mGy-cm FINDINGS: LUNG BASES: The visualized lung bases are unremarkable. LIVER, GALLBLADDER, AND BILIARY TREE: The liver is normal in size, shape, and attenuation. No focal hepatic lesion or biliary ductal dilatation is present. The gallbladder is unremarkable with no evidence of radiopaque gallstones, gallbladder wall thickening, or obvious pericholecystic inflammatory changes. PANCREAS: Unremarkable. SPLEEN: Unremarkable. ADRENAL GLANDS: Unremarkable. KIDNEYS AND URETERS: The kidneys are normal in size, shape, and attenuation. No hydronephrosis, hydroureter, or ureteral calculi seen. The previously seen small bilateral renal calculi are not well visualized in today's contrast enhanced study, likely obscured by the contrast. No perinephric stranding. BLADDER: Underdistended, without gross abnormality. GASTROINTESTINAL TRACT: Stomach and small bowel nondilated. No dilated large colon. No colonic wall thickening or pericolonic inflammatory changes are seen. Appendix appears unremarkable. No free fluid or free air. ABDOMINAL WALL: Small fat-containing umbilical hernia. LYMPH NODES: No enlarged lymph nodes are seen. VASCULAR: Normal caliber aorta. Main portal vein is enhancing. PELVIC VISCERA: 2 cm right adnexal/ovarian cyst. Uterus is within normal limits for CT. OSSEOUS STRUCTURES: No gross osseous abnormality seen. CT/CT abdomen pelvis w con IMPRESSION: 1. The patient's known bilateral small nonobstructing renal calculi are obscured in this contrast-enhanced CT. No ureteral calculi or hydronephrosis seen. 2. No acute findings otherwise identified. 3. Additional findings and details as above.
[2020-10-13 07:40] VITALS: BP 119/74; PULSE 87; RESP 18; TEMP 36.9; O2SAT 98; BMI 35.9
--- NOTE | 2020-10-13 09:43 | ED_ITS ---
HPI - Nausea/Vomiting/Diarrhea General Chief complaint: Nausea/Vomiting/Diarrhea Stated complaint: NAUSEA CHILLS BACK PAIN Time Seen by Provider: 10/13/20 09:43 Source: patient Mode of arrival: ambulatory History of Present Illness HPI Narrative: 34-year-old female with history of fibromyalgia presents with 2-3 days body aches, decreased appetite, sore throat and reports that she has had both of her COVID-19 test and then this morning began having multiple episodes of nausea and non bloody vomiting as well as experiencing episodes of diarrhea with chills and subjective fevers. She denies any contaminated food or urinary pain/burning/frequency. However, she is having complaints bilateral back pain but denies any abdominal pain, shortness of breath or chest pain. Related Data Home Medications Medication Instructions Recorded Confirmed verapamil 120 mg tablet 120 mg PO DAILY 02/14/20 albuterol sulfate 90 mcg/actuation 2 puff INHALATION QID PRN 04/19/20 04/19/20 aerosol inhaler (ProAir HFA) cetirizine 10 mg tablet 1 tab PO DAILY PRN 04/19/20 04/19/20 fluticasone propionate 44 2 puff PO BID 04/19/20 04/19/20 mcg/actuation HFA aerosol inhaler (Flovent HFA) montelukast 10 mg tablet 1 tab PO BEDTIME 04/19/20 04/19/20 Previous Rx's Medication Instructions Recorded ibuprofen 600 mg tablet 600 mg PO Q6H PRN #30 tab 12/18/19 hydrocodone 5 mg-acetaminophen 325 1 tab PO Q4-6H PRN #5 tab 04/19/20 mg tablet ibuprofen 600 mg tablet 600 mg PO Q6H PRN #20 tab 05/13/20 oxycodone 5 mg tablet 5 mg PO Q6H PRN #14 tab 05/13/20 penicillin V potassium 500 mg 500 mg PO QID 7 Days #28 tab 05/13/20 tablet acetaminophen 500 mg tablet 1,000 mg PO QID PRN #14 tab 06/29/20 (Tylenol Extra Strength) azithromycin 250 mg tablet See Rx Instructions .ROUTE 06/29/20 .COMPLEX #6 tab cyclobenzaprine 10 mg tablet 10 mg PO Q8H #10 tab 06/29/20 ibuprofen 800 mg tablet 800 mg PO Q8H PRN #14 tab 06/29/20 ondansetron HCl 4 mg tablet 4 mg PO Q8H PRN #14 tab 06/29/20 (Zofran) tramadol 50 mg tablet 50 mg PO BID PRN #14 tab 06/29/20 cyclobenzaprine 10 mg tablet 10 mg PO TID PRN #10 tab 08/06/20 naproxen 500 mg tablet 500 mg PO BID PRN #20 tab 08/06/20 Allergies Allergy/AdvReac Type Severity Reaction Status Date / Time mushroom [MUSHROOM] Allergy Unknown UNKNOWN Verified 04/19/20 11:58 shellfish derived Allergy Unknown UNKNOWN Verified 04/19/20 11:58 [SHELLFISH DERIVED] Review of Systems Review of Systems: Pertinent positives and negatives as stated in HPI and 10 point review of systems otherwise negative. [facility] Past Medical History Source: nursing notes reviewed Medical History Asthma Carpal tunnel syndrome of right wrist History of palpitations Kidney stones Surgical History History of lithotripsy Hx of tubal ligation [place] teeth extracted Family History Family History Mother No problems noted. Father No problems noted. 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 GENERAL: Well developed, well nourished, in no acute distress. HEAD: Normocephalic/atraumatic, EYES: PERRLA, EOMI EARS: Ext canals without abnormality, TMs non-bulging and non-erythematous NOSE: Nares patent bilateral OROPHARYNX: no oral lesions noted, posterior pharynx clear and non-erythematous without noted tonsillar enlargement/erythema/exudates NECK: Supple, no adenopathy LUNGS: Normal breath sounds. No adventitious sounds or accessory muscle use. SpO2<98> CARDIOVASCULAR: Regular rate and rhythm without noted murmurs ABDOMEN: Soft, non-tender, non-distended with bowel sounds, bilateral CVA tenderness SKIN: Inspection of the skin reveals no rashes NEUROLOGIC: Alert and oriented x 4. Strength and sensation to light touch were grossly intact x 4. Course Course Course Narrative: 34-year-old female with history and clinical presentation suggestive of possible viral syndrome, UTI with pyelonephritis. Review of all investigations negative for acute findings despite noting a mild leukocytosis this may have been a stress response due to patient's reported nausea and vomiting. CT scan was otherwise negative for acute findings and urinalysis did not demonstrate evidence of infection. Patient was provided with all results and will be discharged home in stable condition. MDM - Nausea/Vomiting/Diarrhea Lab Data Result diagrams: 10/13/20 09:58 10/13/20 09:59 Labs: Lab Results 10/13/20 10/13/20 10/13/20 Range/Units 09:58 09:59 09:59 WBC 13.3 H (4.8-10.8) X10*3/uL RBC 5.06 (4.20-5.50) X10*6/uL Hgb 14.7 (12.0-16.0) g/dl Hct 44.4 (37-47) % MCV 87.7 (80-98) fL MCH 29.1 (27.0-33.0) pg MCHC 33.1 (31.0-35.0) g/dl RDW 13.2 (11.0-16.0) % Plt Count 283 (160-400) X10*3/uL MPV 11.0 (9.4-12.3) fL Immature Gran % (Auto) 0.3 (0.0-0.4) % Neut % (Auto) 74.3 H (45-73) % Lymph % (Auto) 20.2 (20-40) % [place] % (Auto) 4.7 (2-11) % Eos % (Auto) 0.2 (0-4) % Baso % (Auto) 0.3 (0-2) % Lymph # (Auto) 2.7 (1.2-4.9) X10*3/uL [place] # (Auto) 0.6 (0.1-1.2) X10*3/uL Eos # (Auto) 0.0 (0.0-0.4) X10*3/uL Baso # (Auto) 0.0 (0.0-0.2) X10*3/uL Abs Immat Gran (auto) 0.04 H (0.00-0.03) X10*3/uL Absolute Neuts (auto) 9.8 H (2.0-8.3) X10*3/uL Absolute Nucleated RBC 0.000 (0.0-0.012) X10*3/uL Nucleated RBC % (auto) 0.0 (0.0-0.2) /100WBC Sodium 141 (135-145) mmol/L Potassium 4.4 (3.3-5.1) mmol/L Chloride 110 H (96-108) mmol/L Carbon Dioxide 23 (22-29) mmol/L Anion Gap 12 (12-20) BUN 12 (9-16) mg/dL Creatinine 0.73 (0.5-1.4) mg/dL Estim Creat Clear Calc 108.2 Estimated GFR > 60 Random Glucose 108 (60-115) mg/dL Calcium 9.4 D (8.4-10.2) mg/dL Total Bilirubin 0.3 (0.0-1.0) mg/dL AST 14 (5-31) U/L ALT 16 (0-31) U/L Alkaline Phosphatase 107 (39-117) U/L Total Protein 7.6 (6.5-8.0) g/dL Albumin 4.5 (3.5-5.0) g/dL Beta HCG, Quant < 2 mIU/mL Urine Color Urine Appearance Urine pH (5.0-8.0) Ur Specific [place] (1.005-1.025) Urine Protein (NEG-TRACE) MG/DL Urine Glucose (UA) (NEG) MG/DL Urine Ketones (NEG) MG/DL Urine Blood (NEG) Urine Nitrite (NEG) Ur Leukocyte Esterase (NEG) Urine RBC (0) /HPF Urine WBC (0-4) /HPF Ur Squamous Epith Cells /LPF Urine Bacteria /LPF Urine Mucus /LPF Urine Test (NEGATIVE) COVID-19 ([facility]) Negative (Negative) COVID-19 Clin Com See Note 10/13/20 10/13/20 Range/Units 13:37 13:37 WBC (4.8-10.8) X10*3/uL RBC (4.20-5.50) X10*6/uL Hgb (12.0-16.0) g/dl Hct (37-47) % MCV (80-98) fL MCH (27.0-33.0) pg MCHC (31.0-35.0) g/dl RDW (11.0-16.0) % Plt Count (160-400) X10*3/uL MPV (9.4-12.3) fL Immature Gran % (Auto) (0.0-0.4) % Neut % (Auto) (45-73) % Lymph % (Auto) (20-40) % [place] % (Auto) (2-11) % Eos % (Auto) (0-4) % Baso % (Auto) (0-2) % Lymph # (Auto) (1.2-4.9) X10*3/uL [place] # (Auto) (0.1-1.2) X10*3/uL Eos # (Auto) (0.0-0.4) X10*3/uL Baso # (Auto) (0.0-0.2) X10*3/uL Abs Immat Gran (auto) (0.00-0.03) X10*3/uL Absolute Neuts (auto) (2.0-8.3) X10*3/uL Absolute Nucleated RBC (0.0-0.012) X10*3/uL Nucleated RBC % (auto) (0.0-0.2) /100WBC Sodium (135-145) mmol/L Potassium (3.3-5.1) mmol/L Chloride (96-108) mmol/L Carbon Dioxide (22-29) mmol/L Anion Gap (12-20) BUN (9-16) mg/dL Creatinine (0.5-1.4) mg/dL Estim Creat Clear Calc Estimated GFR Random Glucose (60-115) mg/dL Calcium (8.4-10.2) mg/dL Total Bilirubin (0.0-1.0) mg/dL AST (5-31) U/L ALT (0-31) U/L Alkaline Phosphatase (39-117) U/L Total Protein (6.5-8.0) g/dL Albumin (3.5-5.0) g/dL Beta HCG, Quant mIU/mL Urine Color YELLOW Urine Appearance CLEAR Urine pH 6.0 (5.0-8.0) Ur Specific [place] >= 1.030 H (1.005-1.025) Urine Protein NEG (NEG-TRACE) MG/DL Urine Glucose (UA) NEG (NEG) MG/DL Urine Ketones NEG (NEG) MG/DL Urine Blood TRACE (NEG) Urine Nitrite NEG (NEG) Ur Leukocyte Esterase NEG (NEG) Urine RBC 10-14 H (0) /HPF Urine WBC 0 (0-4) /HPF Ur Squamous Epith Cells 1+ /LPF Urine Bacteria NONE /LPF Urine Mucus 3+ /LPF Urine Test NEGATIVE (NEGATIVE) COVID-19 ([facility]) (Negative) COVID-19 Clin Com Discharge Plan Discharge Clinical Impression: Viral syndrome, Dehydration Patient Disposition: Home, Self-Care Instructions: Viral Syndrome (ED) Additional Instructions: 1. Resume all home medications as prescribed. 2. Increase fluid hydration especially with water and avoid all carbonated/caffeinated products. 3. Although no acute abnormalities were noted on your workup today I recommend that you follow-up with your primary care provider on Thursday morning for re- evaluation and further outpatient management. Return to the ER for acute worsening of your symptoms. Prescriptions: No Action cetirizine 10 mg tablet 1 tab PO DAILY PRN (Reason: allergies) RF: 0 Flovent HFA 44 mcg/actuation HFA aerosol inhaler 2 puff PO BID RF: 0 montelukast 10 mg tablet 1 tab PO BEDTIME RF: 0 albuterol sulfate [ProAir HFA] 90 mcg/actuation HFA aerosol inhaler 2 puff inhalation QID PRN (Reason: asthma) RF: 0 hydrocodone-acetaminophen 5-325 mg tablet 1 tab PO Q4-6H PRN (Reason: pain) Qty: 5 RF: 0 cyclobenzaprine 10 mg tablet 10 mg PO TID PRN (Reason: muscle spasm) Qty: 10 RF: 0 naproxen 500 mg tablet 500 mg PO BID PRN (Reason: pain) Qty: 20 RF: 0 ibuprofen 600 mg tablet 600 mg PO Q6H PRN (Reason: pain) Qty: 30 RF: 0 penicillin V potassium 500 mg tablet 500 mg PO QID 7 Days Qty: 28 RF: 0 oxycodone 5 mg tablet 5 mg PO Q6H PRN (Reason: pain) Qty: 14 RF: 0 ibuprofen 600 mg tablet 600 mg PO Q6H PRN (Reason: pain) Qty: 20 RF: 0 cyclobenzaprine 10 mg tablet 10 mg PO Q8H Qty: 10 RF: 0 azithromycin 250 mg tablet See Rx Instructions .ROUTE .COMPLEX Qty: 6 RF: 0 ibuprofen 800 mg tablet 800 mg PO Q8H PRN (Reason: pain) Qty: 14 RF: 0 ondansetron HCl [Zofran] 4 mg tablet 4 mg PO Q8H PRN (Reason: nausea and vomiting) Qty: 14 RF: 0 tramadol 50 mg tablet 50 mg PO BID PRN (Reason: pain) Qty: 14 RF: 0 acetaminophen [Tylenol Extra Strength] 500 mg tablet 1,000 mg PO QID PRN (Reason: fever or pain) Qty: 14 RF: 0 Referrals: Jayde Link MD [Primary Care Provider] - 2 days
[2020-10-13] MEDS: Ondansetron ODT 4 MG TAB.RAPDIS TRANSLINGU (10:03)
[2020-10-13 10:04] LABS: MANUAL DIFF FLAG NO
[2020-10-13 10:14] LABS: Basophils Percent Auto 0.3 % (0-2); Eosinophils Percent Auto 0.2 % (0-4); Hematocrit 44.4 % (37-47); Hemoglobin 14.7 g/dl (12.0-16.0); Imm Gran Abs Auto 0.04 X10*3/uL (0.00-0.03); Imm Gran Pct Auto 0.3 % (0.0-0.4); Lymphocytes Absolute Auto 2.7 X10*3/uL (1.2-4.9); Lymphocytes Percent Auto 20.2 % (20-40); Mean Corpuscular HGB Conc 33.1 g/dl (31.0-35.0); Mean Corpuscular Hemoglobin 29.1 pg (27.0-33.0); Mean Corpuscular Volume 87.7 fL (80-98); Monocytes Absolute Auto 0.6 X10*3/uL (0.1-1.2); Monocytes Percent Auto 4.7 % (2-11); Neutrophils Absolute Auto 9.8 X10*3/uL (2.0-8.3); Neutrophils Percent Auto 74.3 % (45-73); Platelet Count 283 X10*3/uL (160-400); Red Blood Count 5.06 X10*6/uL (4.20-5.50); Red Cell Distribution Width 13.2 % (11.0-16.0); White Blood Count 13.3 X10*3/uL (4.8-10.8)
[2020-10-13 10:25] LABS: COVID-19 Test Negative (Negative)
[2020-10-13 10:28] LABS: Alanine Aminotransferase 16 U/L (0-31); Albumin Level 4.5 g/dL (3.5-5.0); Alkaline Phosphatase 107 U/L (39-117); Anion Gap 12 (12-20); Aspartate Amino Transferase 14 U/L (5-31); Bilirubin Total 0.3 mg/dL (0.0-1.0); Blood Urea Nitrogen 12 mg/dL (9-16); Calcium 9.4 mg/dL (8.4-10.2); Carbon Dioxide 23 mmol/L (22-29); Chloride 110 mmol/L (96-108); Creatinine Clr Calc Pharmacy 108.2; Estimated Glomerular Filt Rate > 60; Glucose Random 108 mg/dL (60-115); Potassium 4.4 mmol/L (3.3-5.1); Sodium 141 mmol/L (135-145); Total Protein 7.6 g/dL (6.5-8.0)
[2020-10-13] MEDS: Acetaminophen 325 MG TABLET 975 MG PO (11:19)
[2020-10-13] MEDS: Ketorolac Tromethamine 15 MG/ML VIAL IVPUSH (11:19)
[2020-10-13 13:45] LABS: Glucose Urine UA NEG (NEG); Leukocyte Esterase Urine NEG (NEG); Nitrite Urine NEG (NEG); Specific Gravity - Urine >= 1.030 (1.005-1.025); UACC Culture Trigger NO; Urine Blood TRACE (NEG); Urine Ketones NEG (NEG); Urine Protein NEG (NEG-TRACE)
[2020-10-13 13:49] LABS: Appearance Urine CLEAR; Color Urine YELLOW; Urine Pregnancy NEGATIVE (NEGATIVE)
[2020-10-13 13:50] LABS: UPreg QC Valid YES
[2020-10-13 13:55] LABS: Squamous Epithelial Cell Urine 1+ /LPF; WBC Urine 0 /HPF (0-4)
[2020-10-13 13:56] LABS: Mucus Urine 3+ /LPF
[2020-10-13] MEDS: 0.9 % Sodium Chloride 1,000 ML 999 ML IV (14:12)
[2020-10-13 14:13] LABS: HCG Quantitative < 2 mIU/mL
[2020-10-13] MEDS: iohexoL 350 MG/ML 100 ML INFUS..BTL IV (14:26)
[2020-10-13 14:33] VITALS: BP 118/72; PULSE 55; RESP 16; O2SAT 96
== END 2020-10-13 15:09 | disposition home or self-care (01) ==
PROVIDERS: Emergency Provider Student in an Organized Health Care Education/Training Program; PCP Internal Medicine
DX: B34.9 Viral infection, unspecified (principal); E86.0 Dehydration; Z20.822 Contact with and (suspected) exposure to COVID-19
CPT/HCPCS: 36415; 74177; 80053; 81001; 81025; 84702; 85025; 87635; 96361; 96374; 99284; 99285; J1885; Q9967

== ENCOUNTER 2020-11-28 13:26 | Outpatient (REF) | payer MEDICAID, OTHER, SELFPAY ==
--- NOTE | ~2020-11-28 | MM_ITS ---
EXAMINATION: MM DIAGNOSTIC DIGITAL BREAST TOMOSYNTHESIS, BILATERAL US DIAGNOSTIC ULTRASOUND BREAST, RIGHT CLINICAL INFORMATION: 35-year-old female with palpable fullness 9:00 right breast 2 cm size at routine clinical exam. No known family history breast cancer. No prior breast imaging. The lifetime risk of breast cancer based on the Tyrer-Cuzick Model is 8%. COMPARISON: None (current study represents initial baseline exam). TECHNIQUE: Digital breast tomosynthesis is performed in both the craniocaudal and mediolateral oblique views along with computer-aided detection (CAD). Synthesized 2D images are generated from the tomosynthesis. Additional right CC and right MLO views are provided. Ultrasound right breast is targeted to the outer quadrant. Grayscale imaging and color Doppler are performed without and with harmonics. FINDINGS: There are scattered areas of fibroglandular density (ACR BI-RADS breast composition Category b). Breast tissue composition borders on predominantly fatty. Background stromal markings are normal. There is no mass or architectural abnormality. No abnormal calcifications. The axilla and skin contours are unremarkable. Ultrasound demonstrates no cystic or solid mass or architectural abnormality. No focal duct ectasia. No skin thickening or edema tracking in the soft tissue planes. Results are discussed with the patient at time of visit. MM/MM tomosynthesis diagnostic BI IMPRESSION: No mammographic evidence of malignancy. Unremarkable targeted right breast ultrasound. ASSESSMENT: BI-RADS 1: Negative RECOMMENDATION: 1. Patient should be managed based on the clinical impression. If clinically indicated, further evaluation may be considered with surgical consult. Decision to proceed with biopsy should be based on clinical grounds and degree of clinical concern. 2. Otherwise, routine annual screening mammography, beginning age 40 or earlier as clinical risk factors warrant. This patient's information was entered into a reminder system with a target due date for their next mammogram.
== END 2020-11-28 13:27 | disposition home or self-care (01) ==
LOC: HO.MAMMO 13:26
PROVIDERS: Visit Provider Internal Medicine
DX: N63.15 Unspecified lump in the right breast, overlapping quadrants (principal)
CPT/HCPCS: 76642; 77062; 77066

== ENCOUNTER 2020-12-05 11:22 | Emergency (ER) | payer MEDICAID, OTHER, SELFPAY ==
--- NOTE | ~2020-12-05 | CT_ITS ---
EXAMINATION: CT ABDOMEN AND PELVIS WITH CONTRAST CLINICAL INFORMATION: Abdominal pain and vomiting. Elevated lipase. Rule out pancreatitis. COMPARISON: Previous CT scan of the abdomen and pelvis most recent 10/13/2020 TECHNIQUE: Multidetector volumetric images were obtained from the superior aspect of the liver through the pubic symphysis following administration 85 mL of Omnipaque 350 intravenous contrast. Sagittal and coronal reformatted images were obtained on the technologist's workstation. Oral contrast: Yes This CT examination was performed using dose optimization techniques as appropriate, variously including the following: *Automated exposure control *Adjustment of mA and/or kV according to patient size (this includes techniques or standardized protocols for targeted exams where dose is matched to indication/reason for exam; i.e. extremities or head) *Use of iterative reconstruction technique DLP: 780 mGy-cm FINDINGS: LUNG BASES: The visualized lung bases are unremarkable. LIVER, GALLBLADDER, AND BILIARY TREE: The liver is normal in size, shape, and attenuation. No focal hepatic lesion or biliary ductal dilatation is present. The gallbladder is unremarkable with no evidence of radiopaque gallstones, gallbladder wall thickening, or obvious pericholecystic inflammatory changes. PANCREAS: Unremarkable. SPLEEN: Unremarkable. ADRENAL GLANDS: Unremarkable. KIDNEYS AND URETERS: The right kidney is lobulated in shape and smaller than the left. There is a small 2 mm stone in the lower pole of the right kidney. The kidneys are otherwise unremarkable. BLADDER: Unremarkable. GASTROINTESTINAL TRACT: The small and large bowel are unremarkable. The appendix is unremarkable. ABDOMINAL WALL: There is a small umbilical hernia containing fat. LYMPH NODES: Normal. VASCULAR: Unremarkable. PELVIC VISCERA: Unremarkable. OSSEOUS STRUCTURES: Unremarkable. CT/CT abdomen pelvis w con IMPRESSION: Normal-appearing pancreas. The right kidney is lobulated in shape and smaller than the left. Small right renal stone.
[2020-12-05 11:44] VITALS: BP 155/73; PULSE 59; RESP 18; TEMP 37.3; O2SAT 98; BMI 34.7
[2020-12-05 12:55] LABS: MANUAL DIFF FLAG NO
[2020-12-05 13:02] VITALS: BP 151/84; PULSE 51; RESP 18; O2SAT 99
[2020-12-05 13:04] LABS: Basophils Percent Auto 0.3 % (0-2); Eosinophils Absolute Auto 0.1 X10*3/uL (0.0-0.4); Eosinophils Percent Auto 1.3 % (0-4); Hemoglobin 13.6 g/dl (12.0-16.0); Imm Gran Abs Auto 0.02 X10*3/uL (0.00-0.03); Imm Gran Pct Auto 0.2 % (0.0-0.4); Lymphocytes Absolute Auto 2.8 X10*3/uL (1.2-4.9); Lymphocytes Percent Auto 27.7 % (20-40); Mean Corpuscular HGB Conc 32.4 g/dl (31.0-35.0); Mean Corpuscular Hemoglobin 29.4 pg (27.0-33.0); Mean Corpuscular Volume 90.7 fL (80-98); Mean Platelet Volume 10.9 fL (9.4-12.3); Monocytes Absolute Auto 0.6 X10*3/uL (0.1-1.2); Monocytes Percent Auto 5.6 % (2-11); Neutrophils Absolute Auto 6.5 X10*3/uL (2.0-8.3); Neutrophils Percent Auto 64.9 % (45-73); Platelet Count 282 X10*3/uL (160-400); Red Blood Count 4.63 X10*6/uL (4.20-5.50); Red Cell Distribution Width 13.7 % (11.0-16.0)
[2020-12-05] MEDS: 0.9 % Sodium Chloride 1,000 ML 999 ML IV ×2 (13:09→15:33)
[2020-12-05] MEDS: ondansetron HCL 4 MG/2 ML VIAL IVPUSH (13:09)
[2020-12-05] MEDS: Ketorolac Tromethamine 15 MG/ML VIAL 30 MG IVPUSH (13:10)
[2020-12-05 13:13] LABS: Alanine Aminotransferase 22 U/L (0-31); Albumin Level 4.5 g/dL (3.5-5.0); Alkaline Phosphatase 104 U/L (39-117); Anion Gap 11 (12-20); Aspartate Amino Transferase 24 U/L (5-31); Bilirubin Total 0.4 mg/dL (0.0-1.0); Blood Urea Nitrogen 9 mg/dL (9-16); Calcium 9.3 mg/dL (8.4-10.2); Carbon Dioxide 29 mmol/L (22-29); Chloride 103 mmol/L (96-108); Creatinine Clr Calc Pharmacy 105.2; Estimated Glomerular Filt Rate > 60; Glucose Random 98 mg/dL (60-115); Sodium 139 mmol/L (135-145); Total Protein 7.5 g/dL (6.5-8.0)
[2020-12-05 13:15] LABS: Lipase 229 U/L (8-78)
[2020-12-05 14:36] LABS: Appearance Urine HAZY; Color Urine YELLOW; Glucose Urine UA NEG (NEG); Leukocyte Esterase Urine NEG (NEG); Nitrite Urine NEG (NEG); PH 6.5 (5.0-8.0); UACC Culture Trigger NO; Urine Blood TRACE (NEG); Urine Ketones 15 MG/DL (NEG); Urine Protein NEG (NEG-TRACE)
[2020-12-05 14:54] LABS: Squamous Epithelial Cell Urine 1+ /LPF; WBC Urine 0-2 /HPF (0-4)
[2020-12-05 14:59] VITALS: BP 134/68; PULSE 52; RESP 16; TEMP 37.4; O2SAT 97
--- NOTE | 2020-12-05 15:13 | ED_ITS ---
HPI - Abdominal Pain General Chief Complaint: Abdominal Pain Stated Complaint: vomiting Time Seen by Provider: 12/05/20 12:47 Source: patient Mode of arrival: ambulatory Limitations: no limitations History of Present Illness HPI narrative: 35-year-old female who presents emergency department for evaluation of lower abdominal pain x3 days. The pain started 2 days prior at around 3:00 a.m. in the morning, she states that initially it felt like an upset stomach and she points to her epigastric area. She states that around 6:00 a.m. she then began to vomit. She also developed loose diarrheal stools, 3-4 episode s and then this resolved. She states she has continued to have nausea and vomiting frequently. She continues to have epigastric pain which she describes as a constant pressure-like pain which is 8/10. She also has an intermittent suprapubic pain which is a cramping pain/burning which is 8/10 as well. She states that she has felt hot and cold at home but did not take her temperature. She has had shaking chills. She states she has body aches but this is not unusual for her since she has fibromyalgia. She denied chest pain, shortness of breath, cough, loss of sense of taste or smell. The patient received the 2 dose Moderna COVID-19 vaccination with her 2nd dose being on 07/16/2020. Related Data Home Medications Medication Instructions Recorded Confirmed verapamil 120 mg tablet 120 mg PO DAILY 02/14/20 albuterol sulfate 90 mcg/actuation 2 puff INHALATION QID PRN 04/19/20 04/19/20 aerosol inhaler (ProAir HFA) cetirizine 10 mg tablet 1 tab PO DAILY PRN 04/19/20 04/19/20 fluticasone propionate 44 2 puff PO BID 04/19/20 04/19/20 mcg/actuation HFA aerosol inhaler (Flovent HFA) montelukast 10 mg tablet 1 tab PO BEDTIME 04/19/20 04/19/20 Previous Rx's Medication Instructions Recorded ibuprofen 600 mg tablet 600 mg PO Q6H PRN #30 tab 12/18/19 hydrocodone 5 mg-acetaminophen 325 1 tab PO Q4-6H PRN #5 tab 04/19/20 mg tablet ibuprofen 600 mg tablet 600 mg PO Q6H PRN #20 tab 05/13/20 oxycodone 5 mg tablet 5 mg PO Q6H PRN #14 tab 05/13/20 penicillin V potassium 500 mg 500 mg PO QID 7 Days #28 tab 05/13/20 tablet acetaminophen 500 mg tablet 1,000 mg PO QID PRN #14 tab 06/29/20 (Tylenol Extra Strength) azithromycin 250 mg tablet See Rx Instructions .ROUTE 06/29/20 .COMPLEX #6 tab cyclobenzaprine 10 mg tablet 10 mg PO Q8H #10 tab 06/29/20 ibuprofen 800 mg tablet 800 mg PO Q8H PRN #14 tab 06/29/20 ondansetron HCl 4 mg tablet 4 mg PO Q8H PRN #14 tab 06/29/20 (Zofran) tramadol 50 mg tablet 50 mg PO BID PRN #14 tab 06/29/20 cyclobenzaprine 10 mg tablet 10 mg PO TID PRN #10 tab 08/06/20 naproxen 500 mg tablet 500 mg PO BID PRN #20 tab 08/06/20 morphine 15 mg immediate release 15 mg PO Q4-6H PRN #10 tab 12/05/20 tablet ondansetron 4 mg disintegrating 4 mg PO Q6-8H PRN #14 tab 12/05/20 tablet Allergies Allergy/AdvReac Type Severity Reaction Status Date / Time mushroom [MUSHROOM] Allergy Unknown UNKNOWN Verified 12/05/20 11:43 shellfish derived Allergy Unknown UNKNOWN Verified 12/05/20 11:43 [SHELLFISH DERIVED] Review of Systems Review of Systems Yes all other systems are reviewed and are negative Physical Exam Vital Signs: Vital Signs: Last Vital Signs Temp 99.3 F 12/05/20 14:59 Pulse 52 12/05/20 14:59 Resp 16 12/05/20 14:59 BP 134/68 12/05/20 14:59 Pulse Ox 97 12/05/20 14:59 Body Mass Index 34.7 Const: Other: Very pleasant, cooperative female patient, she does appear to be in distress secondary to her nausea and due to your abdominal pain, she answers all questions appropriately. HENMT: Head: Yes normal to inspection, Yes normocephalic and Yes atraumatic Ears: external ears normal General nose exam: Normal external nose present Face and sinus: Yes normal facial exam Mouth: Normal oral and palatal mucosa present Throat: Yes posterior oropharynx normal Eyes: General: appearance normal, both eyes and all related structures Pupils: Equal, round and reactive pupils present Neck: Neck: Yes normal visual inspection, Yes no lymphadenopathy, Yes trachea midline and Yes supple Chest: Chest palpation & inspection: normal inspection of the chest and normal palpation of entire chest wall Resp: Effort & Inspection: normal respiratory effort and able to speak in complete sentences Auscultation: clear to auscultation bilaterally Cardio: Rate: regular rate Rhythm: regular rhythm Heart sounds: S1 nor mal heart sound present, S2 normal heart sound present and no murmurs GI: Inspection: Yes normal to inspection Palpation (GI): Soft to palpation, Tenderness to palpation present (GI) in the epigastrum (Moderate) and sup rapubicly ([id number]) and no guarding Auscultation: normal bowel s ounds : General: Yes no CVA tenderness Back/Spine/Pelvis: Back: no CVA tenderness Skin: General skin exam: no rashes or lesions noted Neuro: Cranial nerves: Yes CN's II-XII intact bilaterally and Yes Equal, round and reactive pupils present Cognition (Neuro): normal cognition Motor exam (neuro): 5/5 motor strength present throughout Extrem: General: Yes normal to inspection Psych: Appearance: grossly normal Speech and movement: Normal speech and movement present Affect: normal affect Attitude: cooperative Thought process: Normal thought process present Thought content: Normal thought content present Course Course Course Narrative: 35-year-old female who presents emergency department for evaluation of 2-3 days of abdominal pain associated with nausea and vomiting. She also had diarrhea x1 day which resolved. Initial vital signs revealed an elevated blood pressure of 155/73 otherwise were unremarkable. Physical examination did reveal midepigastric and suprapubic tenderness. I ordered a CBC, CMP, urinalysis, COVID-19 and lipase on the patient. The patient was treated with Toradol 30 mg IV, Zofran 4 mg IV and normal saline x1 L. 1518: The patient got minimal relief of her abdominal pain and nausea from the above treatment. The patient's laboratory evaluation revealed a normal CBC, normal CMP, negative urinalysis and negative COVID test. Patient does have a slightly elevated lipase of 229. Patient was ordered to get morphine 4 mg IV, regular and 10 mg IV and Benadryl 25 mg IV. I will obtain a CT scan of the abdomen pelvis with IV contrast to evaluate her for possible pancreatitis. She was also ordered to get normal saline IV x1 L 1733: The patient states she got some relief with the morphine however the pain returned. She was ordered to get a 2nd dose of morphine [address] scan of the patient's abdomen pelvis did not reveal a clear cause for the patient's pain, patient's pancreas appears to be normal. Patient does have a lobulated right kidney a small left kidney but do not think this is caused her pain. She also has a small right kidney stone but no evidence for ureteral stone. At this time I think that the patient's pain is secondary to an acute viral illness. The patient will be discharged home advised to take Tylenol and ibuprofen for pain. For pain not relieved by these 2 medications she was prescribed morphine 15 mg every 4 hours as needed for pain she was also given a prescription for Zofran ODT 4 mg every 6-8 hours as needed. MDM - Abdominal Pain Lab Data Result diagrams: 12/05/20 12:50 12/05/20 12:50 Labs: Lab Results 12/05/20 12/05/20 12/05/20 Range/Units 12:50 12:50 14:28 WBC 10.0 (4.8-10.8) X10*3/uL RBC 4.63 (4.20-5.50) X10*6/uL Hgb 13.6 (12.0-16.0) g/dl Hct 42.0 (37-47) % MCV 90.7 (80-98) fL MCH 29.4 (27.0-33.0) pg MCHC 32.4 (31.0-35.0) g/dl RDW 13.7 (11.0-16.0) % Plt Count 282 (160-400) X10*3/uL MPV 10.9 (9.4-12.3) fL Immature Gran % (Auto) 0.2 (0.0-0.4) % Neut % (Auto) 64.9 (45-73) % Lymph % (Auto) 27.7 (20-40) % [place] % (Auto) 5.6 (2-11) % Eos % (Auto) 1.3 (0-4) % Baso % (Auto) 0.3 (0-2) % Lymph # (Auto) 2.8 (1.2-4.9) X10*3/uL [place] # (Auto) 0.6 (0.1-1.2) X10*3/uL Eos # (Auto) 0.1 (0.0-0.4) X10*3/uL Baso # (Auto) 0.0 (0.0-0.2) X10*3/uL Abs Immat Gran (auto) 0.02 (0.00-0.03) X10*3/uL Absolute Neuts (auto) 6.5 (2.0-8.3) X10*3/uL Absolute Nucleated RBC 0.000 (0.0-0.012) X10*3/uL Nucleated RBC % (auto) 0.0 (0.0-0.2) /100WBC Sodium 139 (135-145) mmol/L Potassium 4.0 (3.3-5.1) mmol/L Chloride 103 (96-108) mmol/L Carbon Dioxide 29 (22-29) mmol/L Anion Gap 11 L (12-20) BUN 9 (9-16) mg/dL Creatinine 0.76 (0.5-1.4) mg/dL Estim Creat Clear Calc 105.2 Estimated GFR > 60 Random Glucose 98 (60-115) mg/dL Calcium 9.3 (8.4-10.2) mg/dL Total Bilirubin 0.4 (0.0-1.0) mg/dL AST 24 D (5-31) U/L ALT 22 (0-31) U/L Alkaline Phosphatase 104 (39-117) U/L Total Protein 7.5 (6.5-8.0) g/dL Albumin 4.5 (3.5-5.0) g/dL Lipase 229 H (8-78) U/L Urine Color YELLOW Urine Appearance HAZY Urine pH 6.5 (5.0-8.0) Ur Specific [place] 1.010 (1.005-1.025) Urine Protein NEG (NEG-TRACE) MG/DL Urine Glucose (UA) NEG (NEG) MG/DL Urine Ketones 15 (NEG) MG/DL Urine Blood TRACE (NEG) Urine Nitrite NEG (NEG) Ur Leukocyte Esterase NEG (NEG) Urine RBC 1-4 (0) /HPF Urine WBC 0-2 (0-4) /HPF Ur Squamous Epith Cells 1+ /LPF Urine Bacteria NONE /LPF Discharge Plan Discharge Clinical Impression: Abdominal pain, Vomiting, Viral syndrome Patient Disposition: Home, Self-Care Instructions: Abdominal Pain (ED), Viral Syndrome (ED) Additional Instructions: Your COVID-19 test was negative. Your laboratory evaluation was unremarkable except for an elevation in your lipase of 229 (normal is less than 78). Urinalysis was negative. The CT scan of your abdomen pelvis however revealed a normal pancreas with no evidence of inflammation suggesting that you do not have pancreatitis and your pancreas is not the cause of your pain today. The CT scan revealed that you have a lobulated right kidney and a smaller left kidney, I do not think this is significant. Your kidney function is normal. This is something you should follow-up with your doctor to discuss if there is any further testing that needs to be done. At this time, I do not have a clear cause for your pain, I suspect that you have a viral infection. Take ibuprofen 200 mg pills, 3 pills every 6 hours as needed for pain. Take Tylenol (acetaminophen) 500 mg pills, 2 pills every 4-6 hours as needed for pain. For pain not relieved by ibuprofen or Tylenol take morphine 15 mg pills, 1 pill every 4- 6 hours as needed for pain. Do not drive or work while taking this medication since they can cause sleepiness. Morphine is a narcotic medication that can be addicting. If you are concerned about addiction you can ask the pharmacist for less pills or do not get this prescription filled. Take Zofran ODT 4 mg pills, 1 pill dissolved in your mouth every 8 hours as needed for nausea and vomiting. Follow-up with your doctor in 2 days. Please return to the emergency department if your symptoms get worse or if you develop any symptoms that are concerning to you. Prescriptions: New morphine 15 mg tablet 15 mg PO Q4-6H PRN (Reason: pain) Qty: 10 RF: 0 ondansetron 4 mg tablet,disintegrating 4 mg PO Q6-8H PRN (Reason: nausea and vomiting) Qty: 14 RF: 0 No Action cetirizine 10 mg tablet 1 tab PO DAILY PRN (Reason: allergies) RF: 0 Flovent HFA 44 mcg/actuation HFA aerosol inhaler 2 puff PO BID RF: 0 montelukast 10 mg tablet 1 tab PO BEDTIME RF: 0 albuterol sulfate [ProAir HFA] 90 mcg/actuation HFA aerosol inhaler 2 puff inhalation QID PRN (Reason: asthma) RF: 0 hydrocodone-acetaminophen 5-325 mg tablet 1 tab PO Q4-6H PRN (Reason: pain) Qty: 5 RF: 0 cyclobenzaprine 10 mg tablet 10 mg PO TID PRN (Reason: muscle spasm) Qty: 10 RF: 0 naproxen 500 mg tablet 500 mg PO BID PRN (Reason: pain) Qty: 20 RF: 0 ibuprofen 600 mg tablet 600 mg PO Q6H PRN (Reason: pain) Qty: 30 RF: 0 penicillin V potassium 500 mg tablet 500 mg PO QID 7 Days Qty: 28 RF: 0 oxycodone 5 mg tablet 5 mg PO Q6H PRN (Reason: pain) Qty: 14 RF: 0 ibuprofen 600 mg tablet 600 mg PO Q6H PRN (Reason: pain) Qty: 20 RF: 0 cyclobenzaprine 10 mg tablet 10 mg PO Q8H Qty: 10 RF: 0 azithromycin 250 mg tablet See Rx Instructions .ROUTE .COMPLEX Qty: 6 RF: 0 ibuprofen 800 mg tablet 800 mg PO Q8H PRN (Reason: pain) Qty: 14 RF: 0 ondansetron HCl [Zofran] 4 mg tablet 4 mg PO Q8H PRN (Reason: nausea and vomiting) Qty: 14 RF: 0 tramadol 50 mg tablet 50 mg PO BID PRN (Reason: pain) Qty: 14 RF: 0 acetaminophen [Tylenol Extra Strength] 500 mg tablet 1,000 mg PO QID PRN (Reason: fever or pain) Qty: 14 RF: 0 PMFSH Past Medical History [facility] Narrative: Social history: She denies tobacco use. She denies alcohol use. She states she has smokes and uses of double marijuana mainly at night to help her sleep. Medical History Asthma Carpal tunnel syndrome of right wrist History of palpitations Kidney stones Surgical History History of lithotripsy Hx of tubal ligation [place] teeth extracted Family History Family History Mother No problems noted. Father No problems noted. 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
[2020-12-05] MEDS: diphenhydrAMINE HCL 50 MG/ML VIAL 25 MG IVPUSH (15:33)
[2020-12-05] MEDS: Morphine Sulfate 4 MG/ML CARTRIDGE IVPUSH ×2 (15:35→17:39)
[2020-12-05] MEDS: iohexoL 350 MG/ML 100 ML INFUS..BTL IV (15:37)
[2020-12-05 17:46] VITALS: BP 122/52; PULSE 55; RESP 16; TEMP 37.3; O2SAT 97
== END 2020-12-05 18:04 | disposition home or self-care (01) ==
PROVIDERS: Emergency Provider Emergency Medicine Emergency Medical Services; PCP Internal Medicine
DX: B34.9 Viral infection, unspecified (principal); R10.30 Lower abdominal pain, unspecified; R11.2 Nausea with vomiting, unspecified; J45.909 Unspecified asthma, uncomplicated
CPT/HCPCS: 36415; 74177; 80053; 81001; 83690; 85025; 96361; 96374; 96375; 96376; 99285; J1200; J1885; J2270; J2405; Q9967

== ENCOUNTER 2021-02-16 09:38 | Emergency (ER) | payer OTHER, MEDICAID, SELFPAY ==
[2021-02-16 11:16] VITALS: BP 147/54; PULSE 63; RESP 18; TEMP 36.1; O2SAT 100; BMI 35.9
[2021-02-16 12:07] LABS: COVID-19 Test Negative (Negative); IDNOW Serial# 9DD0AD1C
--- NOTE | 2021-02-16 12:42 | ED_ITS ---
HPI - URI/Sore Throat General Chief Complaint: Upper Respiratory Symptoms Stated Complaint: Covid symptoms Time Seen by Provider: 02/16/21 11:27 Source: patient and family (Daughter at bedside) Mode of arrival: ambulatory Limitations: no limitations History of Present Illness HPI Narrative: 35-year-old female who is vaccinated to code with 2 Moderna vaccines presenting to the ED with complaints of 5 days of a subjective fevers, chills, fatigue, malaise, body aches, sweats, sore throat, loss of taste and smell, ear pains and a dry cough. Reports that her boss has similar symptoms a few days ago although was not tested for COVID. Her daughter has similar symptoms. She denies recent travel or any other sick contacts. She denies any other symptoms complaints or concerns at this time. MD elicited complaint: fever, cough, sore throat, rhinorrhea and nasal congestion Onset (ago): day(s) (5) Consistency: constant and progressively worsening Severity: mild Description of mucous: clear and watery Able to tolerate fluids by mouth: Yes Exacerbating factors: nothing Relieving factors: nothing Context: sick contacts (Patient reports her boss was sick with a sore throat a few days ago but was not tested for COVID, also reports her daughter has similar symptoms) Associated symptoms: fever, chills, myalgias, diaphoresis, headache, rhinorrhea, nasal congestion, sore throat and cough Treatments prior to arrival: none Related Data Home Medications Medication Instructions Recorded Confirmed verapamil 120 mg tablet 120 mg PO DAILY 02/14/20 albuterol sulfate 90 mcg/actuation 2 puff INHALATION QID PRN 04/19/20 04/19/20 aerosol inhaler (ProAir HFA) cetirizine 10 mg tablet 1 tab PO DAILY PRN 04/19/20 04/19/20 fluticasone propionate 44 2 puff PO BID 04/19/20 04/19/20 mcg/actuation HFA aerosol inhaler (Flovent HFA) montelukast 10 mg tablet 1 tab PO BEDTIME 04/19/20 04/19/20 Previous Rx's Medication Instructions Recorded ibuprofen 600 mg tablet 600 mg PO Q6H PRN #30 tab 12/18/19 hydrocodone 5 mg-acetaminophen 325 1 tab PO Q4-6H PRN #5 tab 03/11/21 mg tablet ibuprofen 600 mg tablet 600 mg PO Q6H PRN #20 tab 05/13/20 oxycodone 5 mg tablet 5 mg PO Q6H PRN #14 tab 05/13/20 penicillin V potassium 500 mg 500 mg PO QID 7 Days #28 tab 05/13/20 tablet acetaminophen 500 mg tablet 1,000 mg PO QID PRN #14 tab 06/29/20 (Tylenol Extra Strength) azithromycin 250 mg tablet See Rx Instructions .ROUTE 06/29/20 .COMPLEX #6 tab cyclobenzaprine 10 mg tablet 10 mg PO Q8H #10 tab 06/29/20 ibuprofen 800 mg tablet 800 mg PO Q8H PRN #14 tab 06/29/20 ondansetron HCl 4 mg tablet 4 mg PO Q8H PRN #14 tab 06/29/20 (Zofran) tramadol 50 mg tablet 50 mg PO BID PRN #14 tab 06/29/20 cyclobenzaprine 10 mg tablet 10 mg PO TID PRN #10 tab 08/06/20 naproxen 500 mg tablet 500 mg PO BID PRN #20 tab 08/06/20 morphine 15 mg immediate release 15 mg PO Q4-6H PRN #10 tab 12/05/20 tablet ondansetron 4 mg disintegrating 4 mg PO Q6-8H PRN #14 tab 12/05/20 tablet acetaminophen 500 mg tablet 1,000 mg PO QID PRN #14 tab 02/16/21 (Tylenol Extra Strength) azithromycin 250 mg tablet See Rx Instructions .ROUTE 02/16/21 .COMPLEX #6 tab codeine 10 mg-guaifenesin 100 mg/5 5 ml PO Q6H PRN #120 ml 02/16/21 mL oral liquid (Guaifenesin AC) diazepam 10 mg tablet (Valium) 10 mg PO Q8H PRN #14 tab 02/16/21 ibuprofen 800 mg tablet 800 mg PO Q8H PRN #14 tab 02/16/21 Allergies Allergy/AdvReac Type Severity Reaction Status Date / Time mushroom [MUSHROOM] Allergy Unknown UNKNOWN Verified 12/05/20 11:43 shellfish derived Allergy Unknown UNKNOWN Verified 12/05/20 11:43 [SHELLFISH DERIVED] Review of Systems Review of Systems: Constitutional : Positive for subjective fever/chills/sweats/fatigue/malaise, No Weight loss ENT/Mouth : Positive sore throat/nasal congestion/rhinorrhea, positive ear pain, No Hearing loss, No Sinus Pain, No Hoarseness, No Swallowing Difficulty Eyes: No Eye Pain, No Swelling, No Redness, No Foreign Body, No Discharge, No Vision Changes Cardiovascular : No Chest Pain, No SOB, No Dyspnea on Exertion, No Orthopnea, No Edema, No Palpitations Respiratory : Positive Cough, No Sputum, No Wheezing, No Smoke Exposure, No Dyspnea Gastrointestinal : No Nausea, No Vomiting, No Diarrhea, No Constipation, No abdominal Pain, No Hematochezia, No Melena Genitourinary : no irregular bleeding, No Dysuria, No Urinary Frequency, No Hematuria, No Urinary Incontinence, No Urgency, No Flank Pain, No Urinary Flow Changes, No Hesitancy Musculoskeletal : No joint pain, positive Myalgias, No Joint Swelling Skin : No Skin Lesions, No rash Neuro : No Weakness, No Numbness, No Paresthesias, No Loss of Consciousness, No Dizziness, No Headache Psych : No Anxiety/Panic, No Depression, No SI/HI/AH/VH, No Social Issues, Heme/Lymph: No Bruising, No Bleeding,No Lymphadenopathy Endocrine : No Polyuria, No Polydipsia, No Temperature Intolerance Yes all other systems are reviewed and are negative [facility] Past Medical History Attestation statement: The following information was validated with the patient. Medical History Asthma Carpal tunnel syndrome of right wrist History of palpitations Kidney stones Surgical History History of lithotripsy Hx of tubal ligation [place] teeth extracted Family History Family History Mother No problems noted. Father No problems noted. 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 Blood pressure normal. Heart rate normal. Respiration rate normal. Temperature normal. Oxygen saturation normal. Appearance: Alert. Oriented X3. No acute distress. Head: Normal external exam. Normocephalic. Atraumatic. Eyes: PERRLA. EOMI. Conjunctiva and sclera normal. Eyelids normal. ENT: EAC normal. TM's Normal. Pharynx normal. Uvula midline. Moist mucous membranes. No trismus noted. No drooling noted. No muffled voice noted. Neck: Normal inspection. Neck supple. FROM. No adenopathy. Thyroid Normal. No meningeal signs. No neck mass noted. CVS: Normal heart rate and rhythm. Heart sound normal. Pulses normal throughout. No murmurs/rales/gallops. Respiratory: No respiratory distress. Painless inspiration. Breath sounds normal. No wheezes/rales/rhonchi noted. Chest nontender. No accessory muscle usage noted or decreased air movement noted. Abdomen: Soft and nontender. Bowel sounds normal in all 4 quadrants. No distention noted. No organomegaly noted. No visible injury noted. Back: No CVA tenderness. Full range of motion noted. No rashes/lesion/induration/fluctuance or signs of infection noted. Skin: Skin warm and dry. Normal skin color. Normal skin turgor. No rashes/lesions/lacerations noted. Extremities: No lower extremity edema. Extremities exhibit normal range of motion. Extremities nontender. Neuro: Oriented X 3. No motor deficit. No sensory deficit. Reflexes normal. Normal steady gait. No focal neuro deficits noted. Vascular: + radial pulses/+ 2 distal pedal pulses/+2 dorsalis pedis b/l. Normal cap refill. No cyanosis noted to upper extremity nails and lower extremity toes nails. Course Course Course Narrative: Patient negative for COVID although her daughter at bedside is positive therefore explained to the patient that most likely she has a false negative COVID test. Therefore explained to her that she should assume that she is COVID positive. She should follow CDC guidelines for restrictions/quarantine. And to return if any new or worsening symptoms follow- up with primary care provider. Patient understands agrees this plan. MDM - URI/Sore Throat Medical Records Attestation: I reviewed the patient's medical records. Lab Data Attestation: I reviewed the patient's lab results. Labs: Lab Results 02/16/21 Range/Units 11:43 COVID-19 ([facility]) Negative (Negative) COVID-19 Clin Com See Note Discharge Plan Discharge Clinical Impression: Close exposure to 2019-nCoV Patient Disposition: Home, Self-Care Instructions: COVID-19 (Coronavirus Disease 2019) (ED) Additional Instructions: Please follow CDC guidelines for COVID 19 restrictions/quarantine Prescriptions: New azithromycin 250 mg tablet See Rx Instructions .ROUTE .COMPLEX Qty: 6 RF: 0 ibuprofen 800 mg tablet 800 mg PO Q8H PRN (Reason: pain) Qty: 14 RF: 0 acetaminophen [Tylenol Extra Strength] 500 mg tablet 1,000 mg PO QID PRN (Reason: fever or pain) Qty: 14 RF: 0 codeine-guaifenesin [Guaifenesin AC] 10-100 mg/5 mL liquid 5 ml PO Q6H PRN (Reason: cold symptoms) Qty: 120 RF: 0 diazepam [Valium] 10 mg tablet 10 mg PO Q8H PRN (Reason: muscle spasm) Qty: 14 RF: 0 No Action cetirizine 10 mg tablet 1 tab PO DAILY PRN (Reason: allergies) RF: 0 Flovent HFA 44 mcg/actuation HFA aerosol inhaler 2 puff PO BID RF: 0 montelukast 10 mg tablet 1 tab PO BEDTIME RF: 0 albuterol sulfate [ProAir HFA] 90 mcg/actuation HFA aerosol inhaler 2 puff inhalation QID PRN (Reason: asthma) RF: 0 hydrocodone-acetaminophen 5-325 mg tablet 1 tab PO Q4-6H PRN (Reason: pain) Qty: 5 RF: 0 cyclobenzaprine 10 mg tablet 10 mg PO TID PRN (Reason: muscle spasm) Qty: 10 RF: 0 naproxen 500 mg tablet 500 mg PO BID PRN (Reason: pain) Qty: 20 RF: 0 ibuprofen 600 mg tablet 600 mg PO Q6H PRN (Reason: pain) Qty: 30 RF: 0 penicillin V potassium 500 mg tablet 500 mg PO QID 7 Days Qty: 28 RF: 0 oxycodone 5 mg tablet 5 mg PO Q6H PRN (Reason: pain) Qty: 14 RF: 0 ibuprofen 600 mg tablet 600 mg PO Q6H PRN (Reason: pain) Qty: 20 RF: 0 cyclobenzaprine 10 mg tablet 10 mg PO Q8H Qty: 10 RF: 0 azithromycin 250 mg tablet See Rx Instructions .ROUTE .COMPLEX Qty: 6 RF: 0 ibuprofen 800 mg tablet 800 mg PO Q8H PRN (Reason: pain) Qty: 14 RF: 0 ondansetron HCl [Zofran] 4 mg tablet 4 mg PO Q8H PRN (Reason: nausea and vomiting) Qty: 14 RF: 0 tramadol 50 mg tablet 50 mg PO BID PRN (Reason: pain) Qty: 14 RF: 0 acetaminophen [Tylenol Extra Strength] 500 mg tablet 1,000 mg PO QID PRN (Reason: fever or pain) Qty: 14 RF: 0 morphine 15 mg tablet 15 mg PO Q4-6H PRN (Reason: pain) Qty: 10 RF: 0 ondansetron 4 mg tablet,disintegrating 4 mg PO Q6-8H PRN (Reason: nausea and vomiting) Qty: 14 RF: 0 Referrals: Jayde Link MD [Primary Care Provider] - 2 days Stand Alone Forms: Work/School Release Print Language: Mauritian
== END 2021-02-16 13:04 | disposition home or self-care (01) ==
PROVIDERS: Physician Assistant Medical; Emergency Provider Internal Medicine; PCP Internal Medicine
DX: J02.9 Acute pharyngitis, unspecified (principal); R05.9 Cough, unspecified; R43.8 Other disturbances of smell and taste; R68.83 Chills (without fever); R53.81 Other malaise; Z20.822 Contact with and (suspected) exposure to COVID-19
CPT/HCPCS: 87635; 99283